=== PATIENT | male | born 1965 | race Caucasian/White ===

== ENCOUNTER 2016-07-21 10:31 | Emergency (ER) | payer OTHER ==
[2016-07-21 10:37] VITALS: BP 165/92
== END 2016-07-21 13:27 | disposition left against medical advice (07) ==
LOC: ED 10:31
DX: R78.9 Finding of unspecified substance, not normally found in blood (principal)

== ENCOUNTER 2016-07-27 09:29 | Emergency (ER) | payer OTHER ==
[2016-07-27] MEDS ORDERED: Ondansetron INJ* 2 MG/ML VIAL IV ONE (09:48)
[2016-07-27] MEDS ORDERED: NS 0.9% 1000 ML* 1,000 ML IV ONE (09:49)
[2016-07-27 10:27] LABS: Hematocrit 38 % (42-52); Hemoglobin 12.7 g/dl (14.0-18.0); Mean Corpuscular HGB Conc 34 g/dl (31-36); Mean Corpuscular Hemoglobin 29 pg (27-31); Mean Corpuscular Volume 85 fL (80-94); Mean Platelet Volume 7 um3 (7.4-10.4); Red Cell Distribution Width 14 % (10.5-15); White Blood Count 9.2 10^3/ul (3.5-10.8)
[2016-07-27 10:32] LABS: Urine Bacteria Absent (Absent); Urine Bilirubin Negative (Negative); Urine Glucose Negative (Negative); Urine Nitrite Negative (Negative); Urine Sperm Present (Absent)
[2016-07-27 10:49] LABS: Albumin 4.8 g/dL (3.2-5.2); BUN/Creatinine Ratio 14.2 (8-20); Calcium 10.3 mg/dL (8.6-10.3); EGFR African American 21.1 (>60); EGFR Non-African American 16.4 (>60); Globulin 4.1 g/dL (2-4); Magnesium 1.9 mg/dL (1.9-2.7); Potassium 3.4 mmol/L (3.5-5.0); Total Bilirubin 0.4 mg/dL (0.2-1.0); Total Protein 8.9 g/dL (6.4-8.9)
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
[2016-07-27 12:04] LABS: Venous Bicarbonate HCO3 29.9 mmol/L (24-28)
[2016-07-27 14:17] VITALS: BP 144/90
--- NOTE | 2016-07-30 20:32 | PN ---
Progress Note - Progress Note Note: patient had been transferred to [facility] prior to results. Urology at [facility] was called. Patient placed on doxycycline and vancomycin for other symptoms related to bone. Psudeomonas [place] susceptible to doxy. nothing further
== END 2016-07-27 14:52 | disposition short-term general hospital (02) ==
LOC: ED 09:29
DX: N17.9 Acute kidney failure, unspecified (principal); I10 Essential (primary) hypertension; Z87.891 Personal history of nicotine dependence
CPT/HCPCS: 36415; 80053; 81003; 81015; 82010; 82803; 83605; 83735; 85025; 87077; 87086; 87186; 93005; 96360; 96365; 96374; 99285; J2405

== ENCOUNTER 2017-01-16 11:07 | Emergency (ER) | payer OTHER ==
--- NOTE | 2017-01-16 13:00 | UC ---
Shoulder Pain HPI - HPI Summary HPI Summary: 2 days ago slipped in wet grass injuring his right shoulder---has taken additional oxycodone---and has continued pain when this has happened in the past he has gotten relief with vicoden-- - History of Current Complaint Chief Complaint: UCUpperExtremity Stated Complaint: SHOULDER INJURY Time Seen by Provider: 01/16/17 12:55 Hx Obtained From: Patient Onset/Duration: Sudden Onset, Lasting Days - 2 Timing: Constant Severity Initially: Moderate Severity Currently: Moderate Location Of Pain: Is Discrete @ - right shoulder Character: Aching, Throbbing, Stiffness Aggravating Factor(s): Movement Alleviating Factor(s): Nothing Associated Signs And Symptoms: Positive: Negative Related History: Dominant Hand Right - Allergies/Home Medications Allergies/Adverse Reactions: Allergies Allergy/AdvReac Type Severity Reaction Status Date / Time No Known Allergies Allergy Verified 01/16/17 09:18 PMH/Surg Hx/FS Hx/Imm Hx Previously Healthy: No - chronic pain Cardiovascular History: Hypertension - Surgical History Surgical History: Yes Surgery Procedure, Year, and Place: REPAIRED PELVIS/RIGHT HIP REPLACEMENT 5 SURGERIES BETWEEN - Family History Known Family History: Positive: None - Social History Occupation: Disabled Lives: With Family Alcohol Use: None Substance Use Type: Marijuana Substance Use Comment - Amount & Last Used: once and a while Smoking Status (MU): Former Smoker Review of Systems Constitutional: Negative Skin: Negative Eyes: Negative ENT: Negative Respiratory: Negative Cardiovascular: Negative Gastrointestinal: Negative Genitourinary: Negative Motor: Negative Neurovascular: Negative Musculoskeletal: Arthralgia - right shoulder Neurological: Negative Psychological: Negative All Other Systems Reviewed And Are Negative: Yes Physical Exam Triage Information Reviewed: Yes Appearance: Well-Appearing, No Pain Distress, Well-Nourished Vital Signs: Initial Vital Signs Temp 98.7 F 01/16/17 11:15 Pulse 87 01/16/17 11:15 Resp 18 01/16/17 11:15 BP 132/80 01/16/17 11:15 Pulse Ox 100 01/16/17 11:15 Vital Signs Reviewed: Yes Eye Exam: Normal Eyes: Positive: Conjunctiva Clear ENT Exam: Normal ENT: Positive: Normal ENT inspection, Hearing grossly normal. Negative: Nasal congestion, Nasal drainage, Trismus, Muffled/hoarse voice Dental Exam: Normal Neck exam: Normal Neck: Positive: Supple, Nontender, No Lymphadenopathy Respiratory Exam: Normal Respiratory: Positive: Chest non-tender, Lungs clear, Normal breath sounds, No respiratory distress, No accessory muscle use Cardiovascular Exam: Normal Cardiovascular: Positive: RRR, No Murmur, Pulses Normal, Brisk Capillary Refill Abdominal Exam: Normal Abdomen Description: Positive: Nontender, No Organomegaly, Soft Bowel Sounds: Positive: Present Musculoskeletal Exam: Normal Musculoskeletal: Positive: Strength Intact, ROM Intact, No Edema Neurological Exam: Normal Neurological: Positive: Alert, Muscle Tone Normal Psychological Exam: Normal Skin Exam: Normal Diagnostics - Radiology No standard instances Xray Interpretation: No Acute Changes Radiology Interpretation Completed By: Radiologist Shoulder Course/Dx - Course Assessment/Plan: hydrocodone, mobic, ice packes follow with pcp - Differential Dx/Diagnosis Differential Diagnosis/HQI/PQRI: Contusion, Fracture (Closed), Sprain, Strain Provider Diagnoses: Right shoulder contusion Discharge - Discharge Plan Condition: Stable Disposition: HOME Prescriptions: Hydrocodone-Acetaminophen [Hydrocodone/Acetaminophen 5-325 mg] 1 tab PO Q6H #12 tab MDD 4 Meloxicam(NF) [Mobic(NF)] 7.5 mg PO BID #30 tab Patient Education Materials: Shoulder Pain (ED) Referrals: Rani Briceno NP [Primary Care Provider] - 1 Week
--- NOTE | 2017-01-16 13:28 | RAD ---
HISTORY: Pain after fall, right shoulder COMPARISONS: April 01, 2004 VIEWS: 4, Frontal internal rotation, external rotation, outlet, and axillary views of the right shoulder FINDINGS: BONE DENSITY: Normal. BONES: There is a well-corticated bone fragment off the lateral clavicle. JOINTS: There is no arthropathy. There is mild diastasis of the AC joint ALIGNMENT: There is no dislocation. SOFT TISSUES: Unremarkable. OTHER FINDINGS: None. IMPRESSION: FINDINGS SUGGESTIVE OF REMOTE A.C. INJURY. NO ACUTE OSSEOUS INJURY. IF SYMPTOMS PERSIST, RECOMMEND REPEAT IMAGING
[2017-01-16 14:07] VITALS: BP 127/97
== END 2017-01-16 13:50 | disposition home or self-care (01) ==
LOC: UCEAST 11:07
DX: S49.90XA Unspecified injury of shoulder and upper arm, unspecified arm, initial encounter (principal); X08.8XXA Exposure to other specified smoke, fire and flames, initial encounter; Y92.9 Unspecified place or not applicable; Z87.891 Personal history of nicotine dependence
CPT/HCPCS: 99211; G0463

== ENCOUNTER 2017-03-24 11:41 | Emergency (ER) | payer OTHER ==
[2017-03-24 12:06] VITALS: BP 131/82
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
== END 2017-03-24 13:59 | disposition left against medical advice (07) ==
LOC: UCEAST 11:41
DX: M25.551 Pain in right hip (principal); I10 Essential (primary) hypertension; Z79.891 Long term (current) use of opiate analgesic
CPT/HCPCS: 99212; G0463

== ENCOUNTER 2017-10-26 10:56 | Emergency (ER) | payer OTHER ==
[2017-10-26 11:15] VITALS: BP 160/108
[2017-10-26] MEDS ORDERED: Ketorolac INJ* 60 MG/2 ML VIAL IM ONE (11:32)
--- NOTE | 2017-10-26 13:30 | UC ---
Shoulder Pain HPI - HPI Summary HPI Summary: Patient is a 52-year-old male with a history of right shoulder pain after a shoulder separation in 1995. He has been having pain since that time, but has recently reinjured the shoulder after throwing trash several days ago. He has been on chronic opioids since his most recent surgery 6 months ago. His PCP has since stopped giving him opioids and he is now followed by the orthopedic surgeon who has been giving him opioids. They're currently discussing surgery. He is also awaiting to get into see the pain clinic to get long-standing opioids. He states he has not tried anything at home because he cannot afford it. He is currently on disability. Has an appointment with Dr. Oneill, his orthopedic surgeon on Monday and would like opioids to get him through until that time. He denies any other concerns at this time. He appears well on arrival and in no acute distress. - History of Current Complaint Chief Complaint: UCUpperExtremity Stated Complaint: SHOULDER INJURY Time Seen by Provider: 10/26/17 11:04 Hx Obtained From: Patient Onset/Duration: Sudden Onset Timing: Constant Severity Initially: Mild Severity Currently: Mild Location Of Pain: Is Discrete @ - R ankle Pain Intensity: 7 Pain Scale Used: 0-10 Numeric Character: Aching Aggravating Factor(s): Movement Alleviating Factor(s): Rest, Ice, Compression Associated Signs And Symptoms: Positive: Negative Related History: Dominant Hand Right - Risk Factors Non-Orthopedic Risk Factor: Negative DVT Risk Factors: Negative Septic Arthritis Risk Factor: Negative - Allergies/Home Medications Allergies/Adverse Reactions: Allergies Allergy/AdvReac Type Severity Reaction Status Date / Time vancomycin Allergy See Comment Verified 10/26/17 11:06 Home Medications: Home Medications Cefadroxil CAP* [Duricef CAP*] 1 grams PO BID 10/26/17 [History Confirmed ] DOXYcycline CAP(*) [DOXYcycline 100MG CAP(*)] 100 mg PO BID 10/26/17 [History Confirmed 10/26/17] rifAMPin [Rifampin] 300 mg PO DAILY 10/26/17 [History Confirmed 10/26/17] PMH/Surg Hx/FS Hx/Imm Hx Previously Healthy: Yes - Surgical History Surgical History: Yes Surgery Procedure, Year, and Place: REPAIRED PELVIS/RIGHT HIP REPLACEMENT 5 SURGERIES BETWEEN . Hardware removal from R hip 2017 - Family History Known Family History: Positive: None, Hypertension - Social History Occupation: Unemployed Lives: Alone Alcohol Use: None Substance Use Type: Marijuana Substance Use Comment - Amount & Last Used: 2 x week Smoking Status (MU): Former Smoker Review of Systems Constitutional: Negative ENT: Negative Respiratory: Negative Cardiovascular: Negative Motor: Negative Neurovascular: Negative Musculoskeletal: Arthralgia Psychological: Negative Is Patient Immunocompromised?: No All Other Systems Reviewed And Are Negative: Yes Physical Exam Triage Information Reviewed: Yes Appearance: Well-Appearing, Well-Nourished Vital Signs: Initial Vital Signs Temp 98.6 F 10/26/17 11:08 Pulse 112 10/26/17 11:08 Resp 18 10/26/17 11:08 BP 160/108 10/26/17 11:08 Pulse Ox 98 10/26/17 11:08 Vital Signs Reviewed: Yes Eye Exam: Normal Eyes: Positive: Conjunctiva Clear - He is wheelchair Neck exam: Normal Neck: Positive: Supple, No Lymphadenopathy Respiratory Exam: Normal Respiratory: Positive: Chest non-tender, Lungs clear Cardiovascular Exam: Normal Cardiovascular: Positive: RRR Musculoskeletal: Positive: Strength Limited @ - R shoulder/limited ROM/no edema Neurological Exam: Normal Neurological: Positive: Alert Psychological: Positive: Normal Response To Family Skin Exam: Normal Shoulder Course/Dx - Course Course Of Treatment: Discussed with the patient treatment options. As he has a follow-up with Dr. Oneill, I will defer to him to further continue his treatment as they see fit. I discussed with the patient that we are able to Toradol for relief as this has anti-inflammatory properties as well as pain control. He appears to be upset about this, but is agreeable to the Toradol loading dose 60 mg IM and a 4 day oral supply. He is encouraged to continue to follow up with Dr. Oneill for more pain management. - Differential Dx/Diagnosis Provider Diagnoses: Chronic Shoulder Pain Discharge - Sign-Out/Discharge Documenting (check all that apply): Discharge - Discharge Plan Condition: Stable Disposition: HOME Prescriptions: Acetaminophen TAB* [Tylenol TAB*] 650 mg PO Q6H PRN #30 tab PRN Reason: Pain Ketorolac TAB * [Toradol TAB *] 10 mg PO Q6H #16 tab Patient Education Materials: Musculoskeletal Pain (ED) Referrals: No Primary Care Phys,NOPCP [Primary Care Provider] - Additional Instructions: Take the toradol four times daily On opposite schedule, take the tylenol four times daily You should be taking a medication every 3-4 hours for pain control Moist heat to the area Keep your appt with your doctor on Monday - Billing Disposition and Condition Condition: STABLE Disposition: HOME
== END 2017-10-26 11:45 | disposition home or self-care (01) ==
LOC: UCEAST 10:56
DX: M25.511 Pain in right shoulder (principal); Z88.1 Allergy status to other antibiotic agents; Z87.891 Personal history of nicotine dependence
CPT/HCPCS: 96372; 99212; G0463; J1885

== ENCOUNTER 2017-11-15 06:26 | Emergency (ER) | payer OTHER ==
[2017-11-15] MEDS ORDERED: Ketorolac INJ* 30 MG/ML 1 ML VIAL IV ONE (07:28)
[2017-11-15] MEDS ORDERED: NS 0.9% 1000 ML* 1,000 ML IV ONE (07:28)
[2017-11-15] MEDS ORDERED: Metoclopramide IV* 5 MG/ML 2 ML VIAL IV ONE (07:28)
[2017-11-15] MEDS ORDERED: Albuterol/Ipratropium NEB.SOL* Albuterol 2.5 MG/Ipratropium 0.5 MG 3 ML INH ONE ×2 (07:33→07:36)
[2017-11-15] MEDS ORDERED: Dexamethasone IV* 4 MG/ML 1 ML (4 MG) IV SLOW PU ONE (07:34)
[2017-11-15] MEDS ORDERED: Clindamycin 900 MG IVPREMIX(* 900 MG/50 ML SDV IV ONE (07:35)
[2017-11-15 08:10] LABS: ABS Basophils 0.1 10^3/ul (0-0.2); ABS Eosinophils 0.1 10^3/ul (0-0.6); ABS Monocytes 0.5 10^3/ul (0-0.8); ABS Neutrophils 4.3 10^3/ul (1.5-7.7); ABS Nucleated RBC 0 10^3/ul; Eosinophil % 2.4 % (0-6); Hematocrit 35 % (42-52); Hemoglobin 11.6 g/dl (14.0-18.0); Lymphocyte % 16.8 % (25-47); Mean Corpuscular HGB Conc 33 g/dl (31-36); Mean Corpuscular Hemoglobin 27 pg (27-31); Mean Corpuscular Volume 82 fL (80-94); Mean Platelet Volume 6.2 um3 (7.4-10.4); Nucleated Red Blood Cells % 0; Platelet Count 518 10^3/ul (150-450); Red Blood Count 4.24 10^6/ul (4.0-5.4); Red Cell Distribution Width 16 % (10.5-15)
[2017-11-15 08:19] LABS: INR 0.89 (0.77-1.02)
[2017-11-15 08:24] LABS: EGFR Non-African American 123.6 (>60)
--- NOTE | 2017-11-15 08:40 | RAD ---
INDICATION: Wheezing. COMPARISON: Comparison is made with a prior chest x-ray study from May 23, 2016. TECHNIQUE: Dual-energy PA and lateral views of the chest were obtained. FINDINGS: The heart is within normal limits in size. Mediastinal and hilar contours appear within normal limits. The lungs are hyperinflated and clear. No pleural effusion is seen. IMPRESSION: NO EVIDENCE FOR ACTIVE CARDIOPULMONARY DISEASE.
[2017-11-15] MEDS ORDERED: Iohexol 300* (CONTRAST) 10 ML SDV IV ONE (09:06)
[2017-11-15 09:21] LABS: Urine Appearance Cloudy; Urine Blood 2+ (Negative); Urine Color Yellow; Urine Ketones 1+ (Negative); Urine Protein 2+(100 mg/dL) (Negative); Urine Specific Gravity 1.023 (1.010-1.030); Urine Urobilinogen Negative (Negative)
[2017-11-15] MEDS ORDERED: Morphine VIAL* 4 MG/ML VIAL (1 ml vial) IV ONE (09:31)
--- NOTE | 2017-11-15 09:48 | RAD ---
INDICATION: History of right hip arthroplasty with sepsis. Evaluate right flank COMPARISON: Right hip March 23, 2017; CT pelvis February 17, 2016 TECHNIQUE: Axial source images were obtained from the hemidiaphragms to the symphysis pubis following administration of oral and intravenous contrast. 93 mL Omnipaque 300 was utilized. Coronal and sagittal reconstructed images were acquired. Lung bases: The lung bases are clear. Liver: The liver is normal in size. There are no masses. There is no ductal dilatation. Gallbladder: There are several tiny gallstones. Spleen: The spleen is normal in size. There are no masses. Pancreas: There is no focal pancreatic mass or ductal dilatation. Adrenal glands: There is no evidence of adrenal mass. Kidneys: The kidneys are normal in size and position. There are prompt nephrograms and there is prompt excretion bilaterally. There are no renal parenchymal masses. There is no evidence of nephrolithiasis. Adenopathy: There is adenopathy in the right inguinal region which is presumably reactive. This is similar to the prior study.. Fluid collections: No discrete localized fluid collections to suggest abscess. Vessels:There are no significant atherosclerotic changes involving the aorta. There is no focal aneurysm. The iliac vessels are normal in caliber. The IVC appears normal. GI tract: There are no acute CT bowel findings. There is no obstruction. The stomach and small bowel appear normal. The lower GI tract is normal. The cecum, ileocecal valve, and terminal ileum appear normal. The appendix is visualized and appear normal. Pelvic organs: Not well evaluated due to beam hardening artifact from right hip breath plasty Bladder: Not well evaluated due to beam hardening artifact from right hip arthroplasty. Abdominal and pelvic soft tissues: There are is edematous change in the superficial soft tissues of the right flank and there is skin induration. Many of these findings were present previously. There is edematous change in the flank musculature extending to the gluteal region and into the iliac fossa where the iliacus muscle shows decreased density and there may be an elliptical fluid collection in the iliac fossa. This was not present previously but in the interim there has been post operative change with removal of metallic hardware involving the right iliac bone. This fluid may or may not be infected. Osseous structures: Extensive postsurgical changes right and in the pelvis with right hip arthroplasty. No acute osseous findings. There is extensive sclerotic change with periosteal elevation suggestive of chronic osteomyelitis. There are Other: None IMPRESSION: NO DISCRETE SUPERFICIAL FLUID COLLECTION TO SUGGEST FLANK ABSCESS ALTHOUGH THERE IS EDEMATOUS CHANGE WITH SKIN INDURATION WHICH MAY REFLECT CELLULITIS. THERE IS INTERVAL RIGHT PELVIC SURGERY AND THERE IS NOW LOW DENSITY IN THE RIGHT ILIAC FOSSA WHICH MAY REPRESENT EDEMA WITHIN THE ILIACUS MUSCLE ALTHOUGH THE MAY ALSO BE A SMALL FLUID COLLECTION. THERE ARE FINDINGS OF CHRONIC OSTEOMYELITIS. THERE IS LYMPHADENOPATHY IN THE RIGHT INGUINAL REGION, UNCHANGED AND LIKELY REFLECTING REACTIVE LYMPHADENOPATHY.
[2017-11-15 11:06] VITALS: BP 140/84
[2017-11-15] MEDS ORDERED: Ciprofloxacin 400MG IVPREMIX(* 400 MG/200 ML BAG IVPB ONE (11:42)
--- NOTE | 2017-11-15 16:59 | ED ---
Gi Ozuna Julia, scribed for Savanah Berry MD on 11/15/17 at 0725 . Skin Complaint - HPI Summary HPI Summary: This patient is a 52 year old M presenting to [facility] with a chief complaint of a painful erythematous rash over the RLQ and right lateral abdomen for the past couple days. The patient rates the pain 9/10 in severity. Patient denies fever, nausea, and vomiting. 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 Infection occurred after a R hip replacement. Patient is being treated by infectious disease at [facility]. Pt additionally reports wheezing and SOB. Previous similar symptoms relieved by nebulizer tx at PCPs office. - History of Current Complaint Chief Complaint: EDRashSkinAbscess Time Seen by Provider: 11/15/17 07:12 Stated Complaint: POSSIBLE INFECTION ON ABD/RIGHT SIDE Hx Obtained From: Patient Onset/Duration: Worse Since - past couple days Skin Exposure Onset/Duration: Days Ago Timing: Constant Pain Intensity: 9 Pain Scale Used: 0-10 Numeric Skin Location: Abdomen - RLQ, right lateral Character: Pain, Redness Alleviating Symptom(s): Other: Associated Signs & Symptoms: Wheezing - and SOB - Allergy/Home Medications Allergies/Adverse Reactions: Allergies Allergy/AdvReac Type Severity Reaction Status Date / Time vancomycin Allergy See Comment Verified 11/15/17 06:33 Home Medications: Home Medications RiFAMPin CAP* 300 mg PO BID 11/15/17 [History Confirmed 11/15/17] PMH/Surg Hx/FS Hx/Imm Hx Endocrine/Hematology History: Denies: Hx Diabetes, Hx Thyroid Disease Cardiovascular History: Reports: Hx Hypertension - on medication Denies: Hx Pacemaker/ICD Respiratory History: Denies: Hx Asthma, Hx Chronic Obstructive Pulmonary Disease (COPD) GI History: Denies: Hx Ulcer History: Denies: Hx Renal Disease Musculoskeletal History: Reports: Hx Arthritis, Hx Orthopedic Injury - fractured right hip and pelvis, Other Musculoskeletal History Sensory History: Denies: Hx Hearing Aid Psychiatric History: Reports: Hx Depression Denies: Hx Panic Disorder - Surgical History Surgery Procedure, Year, and Place: REPAIRED PELVIS/RIGHT HIP REPLACEMENT 5 SURGERIES BETWEEN . Hardware removal from R hip 2017 Infectious Disease History: Yes Infectious Disease History: Reports: Hx of Known/Suspected MRSA Denies: Hx Clostridium Difficile, Hx Hepatitis, Hx Human Immunodeficiency Virus (HIV), Hx Shingles, Hx Tuberculosis, Hx Known/Suspected VRE, Hx Known/ Suspected VRSA, History Other Infectious Disease, Traveled Outside the [place] in Last 30 Days - Family History Known Family History: Positive: Hypertension - Social History Alcohol Use: None Substance Use Type: Reports: Marijuana Substance Use Comment - Amount & Last Used: 2 x week Hx Tobacco Use: No Smoking Status (MU): Former Smoker Review of Systems Negative: Fever Positive: Shortness Of Breath, Cough Negative: Vomiting, Nausea Positive: Rash All Other Systems Reviewed And Are Negative: Yes Physical Exam - Summary Physical Exam Summary: Appearance: Well-appearing, Well-nourished Skin: Warm, erythema in RLQ area extending laterally with induration, no fluctuant appreciated Eyes: Normal, PERRL, EOMI, sclera anicteric ENT: Normal Neck: Supple, nontender Respiratory: Wheezing throughout Cardiovascular: S1, S2, no murmur, no rub, no gallop Abdomen: Soft, nontender, no organomegaly Bowel sounds: Present Musculoskeletal: Normal, Strength/ROM Intact, no edema, pulses symmetrical Neurological: Normal, A&Ox3, cranial nerves II-XII WNL, follows commands, gait not tested, sensation intact to pin and light touch Psychiatric: affect normal, behavior appropriate, dressed appropriately, judgment intact Triage Information Reviewed: Yes Vital Signs On Initial Exam: Initial Vitals Temp Pulse Resp BP Pulse Ox 97.5 F 100 18 144/92 94 11/15/17 06:28 11/15/17 06:28 11/15/17 06:28 11/15/17 06:28 11/15/17 06:28 Vital Signs Reviewed: Yes Diagnostics - Vital Signs Vital Signs Temp Pulse Resp BP Pulse Ox 11/15/17 06:54 95 131/94 94 11/15/17 06:53 93 94 11/15/17 06:28 97.5 F 100 18 144/92 94 - Laboratory Lab Results: Lab Results 11/15/17 11/15/17 11/15/17 Range/Units 07:49 07:49 07:49 WBC 6.0 (3.5-10.8) 10^3/ul RBC 4.24 (4.0-5.4) 10^6/ul Hgb 11.6 L (14.0-18.0) g/dl Hct 35 L (42-52) % MCV 82 (80-94) fL MCH 27 (27-31) pg MCHC 33 (31-36) g/dl RDW 16 H (10.5-15) % Plt Count 518 H (150-450) 10^3/ul MPV 6.2 L (7.4-10.4) um3 Neut % (Auto) 71.7 (38-83) % Lymph % (Auto) 16.8 L (25-47) % [place] % (Auto) 8.1 H (0-7) % Eos % (Auto) 2.4 (0-6) % Baso % (Auto) 1.0 (0-2) % Absolute Neuts (auto) 4.3 (1.5-7.7) 10^3/ul Absolute Lymphs (auto) 1.0 (1.0-4.8) 10^3/ul Absolute Monos (auto) 0.5 (0-0.8) 10^3/ul Absolute Eos (auto) 0.1 (0-0.6) 10^3/ul Absolute Basos (auto) 0.1 (0-0.2) 10^3/ul Absolute Nucleated RBC 0 10^3/ul Nucleated RBC % 0 INR (Anticoag Therapy) (0.77-1.02) APTT (26.0-36.3) seconds Sodium 136 L (139-145) mmol/L Potassium 4.3 (3.5-5.0) mmol/L Chloride 99 L (101-111) mmol/L Carbon Dioxide 28 (22-32) mmol/L Anion Gap 9 (2-11) mmol/L BUN 20 (6-24) mg/dL Creatinine 0.67 (0.67-1.17) mg/dL Est GFR ( Amer) 159.0 (>60) Est GFR (Non-Af Amer) 123.6 (>60) BUN/Creatinine Ratio 29.9 H (8-20) Glucose 114 H (70-100) mg/dL Lactic Acid 0.9 (0.5-2.0) mmol/L Calcium 9.3 (8.6-10.3) mg/dL Total Bilirubin 0.30 (0.2-1.0) mg/dL AST 19 (13-39) U/L ALT 24 (7-52) U/L Alkaline Phosphatase 91 (34-104) U/L C-Reactive Protein 128.47 H (< 5.00) mg/L Total Protein 7.4 (6.4-8.9) g/dL Albumin 3.8 (3.2-5.2) g/dL Globulin 3.6 (2-4) g/dL Albumin/Globulin Ratio 1.1 (1-3) Lipase 36 (11.0-82.0) U/L Urine Color Urine Appearance Urine pH (5-9) Ur Specific [place] (1.010-1.030) Urine Protein (Negative) Urine Ketones (Negative) Urine Blood (Negative) Urine Nitrate (Negative) Urine Bilirubin (Negative) Urine Urobilinogen (Negative) Ur Leukocyte Esterase (Negative) Urine WBC (Auto) (Absent) Urine RBC (Auto) (Absent) Urine Bacteria (Absent) Urine Glucose (Negative) 11/15/17 11/15/17 Range/Units 07:49 09:01 WBC (3.5-10.8) 10^3/ul RBC (4.0-5.4) 10^6/ul Hgb (14.0-18.0) g/dl Hct (42-52) % MCV (80-94) fL MCH (27-31) pg MCHC (31-36) g/dl RDW (10.5-15) % Plt Count (150-450) 10^3/ul MPV (7.4-10.4) um3 Neut % (Auto) (38-83) % Lymph % (Auto) (25-47) % [place] % (Auto) (0-7) % Eos % (Auto) (0-6) % Baso % (Auto) (0-2) % Absolute Neuts (auto) (1.5-7.7) 10^3/ul Absolute Lymphs (auto) (1.0-4.8) 10^3/ul Absolute Monos (auto) (0-0.8) 10^3/ul Absolute Eos (auto) (0-0.6) 10^3/ul Absolute Basos (auto) (0-0.2) 10^3/ul Absolute Nucleated RBC 10^3/ul Nucleated RBC % INR (Anticoag Therapy) 0.89 (0.77-1.02) APTT 28.6 (26.0-36.3) seconds Sodium (139-145) mmol/L Potassium (3.5-5.0) mmol/L Chloride (101-111) mmol/L Carbon Dioxide (22-32) mmol/L Anion Gap (2-11) mmol/L BUN (6-24) mg/dL Creatinine (0.67-1.17) mg/dL Est GFR ( Amer) (>60) Est GFR (Non-Af Amer) (>60) BUN/Creatinine Ratio (8-20) Glucose (70-100) mg/dL Lactic Acid (0.5-2.0) mmol/L Calcium (8.6-10.3) mg/dL Total Bilirubin (0.2-1.0) mg/dL AST (13-39) U/L ALT (7-52) U/L Alkaline Phosphatase (34-104) U/L C-Reactive Protein (< 5.00) mg/L Total Protein (6.4-8.9) g/dL Albumin (3.2-5.2) g/dL Globulin (2-4) g/dL Albumin/Globulin Ratio (1-3) Lipase (11.0-82.0) U/L Urine Color Yellow Urine Appearance Cloudy Urine pH 6.0 (5-9) Ur Specific [place] 1.023 (1.010-1.030) Urine Protein 2+(100 mg/dl) A (Negative) Urine Ketones 1+ A (Negative) Urine Blood 2+ A (Negative) Urine Nitrate Negative (Negative) Urine Bilirubin Negative (Negative) Urine Urobilinogen Negative (Negative) Ur Leukocyte Esterase 3+ A (Negative) Urine WBC (Auto) 3+(>20/hpf) A (Absent) Urine RBC (Auto) 3+(>10/hpf) A (Absent) Urine Bacteria Absent (Absent) Urine Glucose Negative (Negative) Result Diagrams: 11/15/17 07:49 11/15/17 07:49 Lab Statement: Any lab studies that have been ordered have been reviewed, and results considered in the medical decision making process. - Radiology CXR Radiology Interpretation Completed By: Radiologist - NO EVIDENCE FOR ACTIVE CARDIOPULMONARY DISEASE. Dr. Berry has reviewed this report. - CT A/P CT Interpretation Completed By: Radiologist - NO DISCRETE SUPERFICIAL FLUID COLLECTION TO SUGGEST FLANK ABSCESS ALTHOUGH THERE IS EDEMATOUS CHANGE WITH SKIN INDURATION WHICH MAY REFLECT CELLULITIS. THERE IS INTERVAL RIGHT PELVIC SURGERY AND THERE IS NOW LOW DENSITY IN THE RIGHT ILIAC FOSSA WHICH MAY REPRESENT EDEMA WITHIN THE ILIACUS MUSCLE ALTHOUGH THE MAY ALSO BE A SMALL FLUID COLLECTION. THERE ARE FINDINGS OF CHRONIC OSTEOMYELITIS. THERE IS LYMPHADENOPATHY IN THE RIGHT INGUINAL REGION, UNCHANGED AND LIKELY REFLECTING REACTIVE LYMPHADENOPATHY. Dr. Berry has reviewed this report. Re-Evaluation - Re-Evaluation 1 Re-Evaluation Time: 11:16 Comment: Discussed plan of care with patient. Course/Dx - Course Assessment/Plan: 52 y/o M presents to the ED c/o cellulitis to his R lateral abdomen. Pt reports multiple surgeries to the R hip with hardware placement and subsequent infection. UA is indicative for UTI. At 11:[address] Beasley , infection disease conrol at [facility]. HE recommends transfer to [facility] and need for IV antibioticss. Discussed recommendations for transfer to [facility] with patient, he refuses. Patient signs out AMA. Patient said that he will follow up with them on his own time. Patient is awake, alert and oriented and seems capable of making informed decisions and so he was allowed to sign out against advice. - Diagnoses Provider Diagnoses: Post-operative infection, UTI (urinary tract infection) Discharge - Sign-Out/Discharge Documenting (check all that apply): Discharge/Admit/Transfer - AMA - Discharge Plan Condition: Stable Disposition: AGAINST MEDICAL ADVICE Referrals: No Primary Care Phys,NOPCP [Primary Care Provider] - - Billing Disposition and Condition Condition: STABLE Disposition: AMA The documentation as recorded by the Gi rachel Julia accurately reflects the service I personally performed and the decisions made by me, Savanah Berry MD.
== END 2017-11-15 11:55 | disposition left against medical advice (07) ==
LOC: ED 06:26
DX: Z88.3 Allergy status to other anti-infective agents (principal); Z87.891 Personal history of nicotine dependence; T81.4XXA Infection following a procedure, initial encounter; N39.0 Urinary tract infection, site not specified
CPT/HCPCS: 36415; 71046; 74177; 80053; 81003; 81015; 83605; 83690; 85025; 85610; 85730; 86140; 87040; 87086; 96361; 96374; 96375; 99283; A9270-GY; J1100; J1885; J2270; J2765; Q9967

== ENCOUNTER 2017-11-17 07:33 | Emergency (ER) | payer OTHER ==
[2017-11-17] MEDS ORDERED: Morphine VIAL* 4 MG/ML VIAL (1 ml vial) IV ONE (08:05)
[2017-11-17] MEDS ORDERED: NS 0.9% 1000 ML* 1,000 ML IV ONE (08:05)
[2017-11-17 08:43] LABS: ABS Basophils 0.1 10^3/ul (0-0.2); ABS Eosinophils 0.1 10^3/ul (0-0.6); ABS Lymphocytes 0.9 10^3/ul (1.0-4.8); ABS Monocytes 0.3 10^3/ul (0-0.8); ABS Neutrophils 3.8 10^3/ul (1.5-7.7); ABS Nucleated RBC 0 10^3/ul; Eosinophil % 2.1 % (0-6); Hematocrit 34 % (42-52); Hemoglobin 11.1 g/dl (14.0-18.0); Lymphocyte % 18.2 % (25-47); Mean Corpuscular HGB Conc 33 g/dl (31-36); Mean Corpuscular Hemoglobin 27 pg (27-31); Mean Corpuscular Volume 82 fL (80-94); Nucleated Red Blood Cells % 0; Platelet Count 513 10^3/ul (150-450); Red Blood Count 4.07 10^6/ul (4.0-5.4); Red Cell Distribution Width 17 % (10.5-15); White Blood Count 5.2 10^3/ul (3.5-10.8)
[2017-11-17] MEDS ORDERED: Piperacillin/Tazobac ADVAN(*) 3.375 GM in NS 0.9% 100 ML* 100 ML IVPB ONE (09:38)
--- NOTE | 2017-11-17 10:21 | ED ---
Complex/Multi-Sys Presentation - HPI Summary HPI Summary: Patient is a 52-year-old male who presents emergency department for reevaluation. 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 He currently follows with infectious disease [facility]. His orthopedic surgeon is also an [facility] as well. Patient states in July he was hospitalized for one month for IV antibiotics secondary to infected right hip prosthesis. Patient states this past week he developed redness, pain and swelling to the right side of his abdomen/flank. He presented to the ER 2 days ago and had blood work and CAT scan done. CAT scan showing cellulitis with questionable fluid pocket. Blood work was unremarkable other than elevated CRP of 125. At that time ER doctor spoke with Dr. Beasley, infectious disease, at [facility] who recommended transfer for continuation of IV antibiotics. At that time patient refused transfer and was signed out AMA. Pt. presents to the today because his pain has increased. He is currently on keflex, doxy, and rifampin. He otherwise denies fever, chills, N/V, CP, SOB. Symptoms are moderate in severity. Walking and touching affected area makes symptoms worse. Nothing makes symptoms better. - History Of Current Complaint Chief Complaint: EDFlankPain Time Seen by Provider: 11/17/17 07:42 Hx Obtained From: Patient - Allergies/Home Medications Allergies/Adverse Reactions: Allergies Allergy/AdvReac Type Severity Reaction Status Date / Time vancomycin Allergy See Comment Verified 11/15/17 06:33 PMH/Surg Hx/FS Hx/Imm Hx Previously Healthy: Yes Endocrine/Hematology History: Denies: Hx Diabetes, Hx Thyroid Disease Cardiovascular History: Reports: Hx Hypertension - on medication Denies: Hx Pacemaker/ICD Respiratory History: Denies: Hx Asthma, Hx Chronic Obstructive Pulmonary Disease (COPD) GI History: Denies: Hx Ulcer History: Denies: Hx Renal Disease Musculoskeletal History: Reports: Hx Arthritis, Hx Orthopedic Injury - fractured right hip and pelvis, Other Musculoskeletal History Sensory History: Denies: Hx Hearing Aid Psychiatric History: Reports: Hx Depression Denies: Hx Panic Disorder - Surgical History Surgery Procedure, Year, and Place: REPAIRED PELVIS/RIGHT HIP REPLACEMENT 5 SURGERIES BETWEEN . Hardware removal from R hip 2017 Infectious Disease History: No Infectious Disease History: Reports: Hx of Known/Suspected MRSA Denies: Hx Clostridium Difficile, Hx Hepatitis, Hx Human Immunodeficiency Virus (HIV), Hx Shingles, Hx Tuberculosis, Hx Known/Suspected VRE, Hx Known/ Suspected VRSA, History Other Infectious Disease, Traveled Outside the [place] in Last 30 Days - Family History Known Family History: Positive: None, Hypertension - Social History Alcohol Use: None Substance Use Type: Reports: Marijuana Substance Use Comment - Amount & Last Used: 2 x week Hx Tobacco Use: No Smoking Status (MU): Former Smoker Review of Systems Constitutional: Negative Negative: Fever, Chills Eyes: Negative ENT: Negative Cardiovascular: Negative Respiratory: Negative Positive: Abdominal Pain. Negative: Vomiting, Diarrhea, Nausea Positive: Other - Right hip pain Positive: Other - Redness, swelling and pain to abd. All Other Systems Reviewed And Are Negative: Yes Physical Exam Triage Information Reviewed: Yes Vital Signs On Initial Exam: Initial Vitals Temp Pulse Resp BP Pulse Ox 97.3 F 98 15 148/106 96 11/17/17 07:35 11/17/17 07:35 11/17/17 07:35 11/17/17 07:35 11/17/17 07:35 Vital Signs Reviewed: Yes Appearance: Positive: Well-Appearing - Pt. lying in bed in NAD. Skin: Positive: Warm, Dry Head/Face: Positive: Normal Head/Face Inspection Eyes: Positive: Normal, JANAE Neck: Positive: Supple Abdomen Description: Positive: Other: - Large area of induration with mild over lying erythema noted to the right lateral abdominal/flank wall. Area is very tender to light palpation. Diffuse lower abd. pain on palpation. Musculoskeletal: Positive: Other - Pain with ROM to right hip. Leg is neurovascularly intact. Neurological: Positive: Normal, CN Intact II-III Psychiatric: Positive: Normal Diagnostics - Vital Signs Vital Signs Temp Pulse Resp BP Pulse Ox 11/17/17 08:18 20 11/17/17 07:35 97.3 F 98 15 148/106 96 - Laboratory Lab Results: Lab Results 11/17/17 11/17/17 11/17/17 Range/Units 08:27 08:27 08:27 WBC 5.2 (3.5-10.8) 10^3/ul RBC 4.07 (4.0-5.4) 10^6/ul Hgb 11.1 L (14.0-18.0) g/dl Hct 34 L (42-52) % MCV 82 (80-94) fL MCH 27 (27-31) pg MCHC 33 (31-36) g/dl RDW 17 H (10.5-15) % Plt Count 513 H (150-450) 10^3/ul MPV 6.0 L (7.4-10.4) um3 Neut % (Auto) 73.0 (38-83) % Lymph % (Auto) 18.2 L (25-47) % [place] % (Auto) 5.6 (0-7) % Eos % (Auto) 2.1 (0-6) % Baso % (Auto) 1.1 (0-2) % Absolute Neuts (auto) 3.8 (1.5-7.7) 10^3/ul Absolute Lymphs (auto) 0.9 L (1.0-4.8) 10^3/ul Absolute Monos (auto) 0.3 (0-0.8) 10^3/ul Absolute Eos (auto) 0.1 (0-0.6) 10^3/ul Absolute Basos (auto) 0.1 (0-0.2) 10^3/ul Absolute Nucleated RBC 0 10^3/ul Nucleated RBC % 0 Sodium 135 L (139-145) mmol/L Potassium 3.8 (3.5-5.0) mmol/L Chloride 101 (101-111) mmol/L Carbon Dioxide 26 (22-32) mmol/L Anion Gap 8 (2-11) mmol/L BUN 8 (6-24) mg/dL Creatinine 0.53 L (0.67-1.17) mg/dL Est GFR ( Amer) 208.4 (>60) Est GFR (Non-Af Amer) 162.0 (>60) BUN/Creatinine Ratio 15.1 (8-20) Glucose 113 H (70-100) mg/dL Lactic Acid 0.8 (0.5-2.0) mmol/L Calcium 9.0 (8.6-10.3) mg/dL Total Bilirubin 0.30 (0.2-1.0) mg/dL AST 13 (13-39) U/L ALT 17 (7-52) U/L Alkaline Phosphatase 80 (34-104) U/L Total Protein 6.8 (6.4-8.9) g/dL Albumin 3.5 (3.2-5.2) g/dL Globulin 3.3 (2-4) g/dL Albumin/Globulin Ratio 1.1 (1-3) Result Diagrams: 11/17/17 08:27 11/17/17 08:27 Lab Statement: Any lab studies that have been ordered have been reviewed, and results considered in the medical decision making process. Complex Multi-Symp Course/Dx Course Of Treatment: Pt. presenting for worsening abd. wall cellulitis with possible recurrent infection of right prosthetic hip. He is afebrile stable vital signs. Patient was started on IV fluids and low-dose IV morphine for pain. Will recheck blood work and blood cultures. Initially spoke with infectious disease [facility], Dr. Beasley, who recommends transfer for worsening infection. IV zosyn given. Pt. will be transferred stable. - Diagnoses Differential Diagnoses/HQI/PQRI: Sepsis, Other Provider Diagnoses: Abdominal wall cellulitis, Infected prosthesis of right hip - Physician Notifications Instructed by Provider To: Transfer Admit/Transition Orders Completed By ED Provider: Yes Reason For Transfer: Specialty or service not available at [facility] [place]. Discharge - Sign-Out/Discharge Documenting (check all that apply): Discharge/Admit/Transfer - Discharge Plan Condition: Stable Disposition: TRANS HIGHER LVL OF CARE FAC Referrals: Rosas Dumont MD [Primary Care Provider] - - Billing Disposition and Condition Condition: STABLE Disposition: EMTALA
[2017-11-17 10:33] VITALS: BP 145/94
== END 2017-11-17 11:15 | disposition short-term general hospital (02) ==
LOC: ED 07:33
DX: L03.311 Cellulitis of abdominal wall (principal); T84.51XD Infection and inflammatory reaction due to internal right hip prosthesis, subsequent encounter; I10 Essential (primary) hypertension; F32.9 Major depressive disorder, single episode, unspecified; Z88.1 Allergy status to other antibiotic agents; Z87.891 Personal history of nicotine dependence
CPT/HCPCS: 36415; 80053; 83605; 85025; 87040; 96365; 96375; 99283; J2270; J2543

== ENCOUNTER 2018-02-03 08:32 | Emergency (ER) | payer OTHER ==
[2018-02-03] MEDS ORDERED: NS 0.9% 1000 ML*IV.FLUID IV ONE (08:59)
[2018-02-03] MEDS ORDERED: Piperacillin/Tazobac ADVAN(*) 3.375 GM in NS 0.9% 100 ML* 100 ML IVPB ONE (09:00)
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
[2018-02-03 09:25] LABS: ABS Basophils 0.1 10^3/ul (0-0.2); ABS Eosinophils 0.1 10^3/ul (0-0.6); ABS Lymphocytes 0.7 10^3/ul (1.0-4.8); ABS Monocytes 0.6 10^3/ul (0-0.8); ABS Neutrophils 6.3 10^3/ul (1.5-7.7); ABS Nucleated RBC 0 10^3/ul; Eosinophil % 1.5 % (0-6); Hematocrit 32 % (42-52); Hemoglobin 10.6 g/dl (14.0-18.0); INR 0.94 (0.77-1.02); Lymphocyte % 9.4 % (25-47); Mean Corpuscular HGB Conc 33 g/dl (31-36); Mean Corpuscular Hemoglobin 28 pg (27-31); Mean Corpuscular Volume 84 fL (80-94); Mean Platelet Volume 6.4 um3 (7.4-10.4); Nucleated Red Blood Cells % 0; Platelet Count 554 10^3/ul (150-450); Red Blood Count 3.85 10^6/ul (4.00-5.40); Red Cell Distribution Width 14 % (10.5-15); White Blood Count 7.9 10^3/ul (3.5-10.8)
--- NOTE | 2018-02-03 09:56 | RAD ---
INDICATION: Right rib pain COMPARISON: Chest x-ray November 15, 2017 TECHNIQUE: PA and lateral dual-energy views were obtained. FINDINGS: Bones/Soft Tissues: There are no acute bony findings. There is a scoliotic deformity. Cardiomediastinal: The cardiomediastinal silhouette is normal. Lungs: There are no infiltrates. Pleura: There are no pleural effusions. Other: None IMPRESSION: NO ACTIVE DISEASE.
[2018-02-03 10:06] LABS: EGFR Non-African American 123.6 (>60)
[2018-02-03] MEDS ORDERED: Iohexol 300* (CONTRAST) 10 ML SDV IV ONE (11:11)
--- NOTE | 2018-02-03 11:20 | RAD ---
INDICATION: Right flank abscess COMPARISON: CT November 15, 2017 TECHNIQUE: Axial source images were obtained from the hemidiaphragms to the symphysis pubis following administration of oral and intravenous contrast. 92 mL Omnipaque 300 was utilized. Coronal and sagittal reconstructed images were acquired. Lung bases: The lung bases are clear. Liver: The liver is normal in size. There are no masses. There is no ductal dilatation. Gallbladder: There are several tiny gallstones. There is no thickening of the gallbladder wall or pericholecystic fluid. Spleen: The spleen is normal in size. There are no masses. Pancreas: There is no focal pancreatic mass or ductal dilatation. Adrenal glands: There is no evidence of adrenal mass. Kidneys: The kidneys are normal in size and position. There are prompt nephrograms and there is prompt excretion bilaterally. There are no renal parenchymal masses. There is no evidence of nephrolithiasis. Adenopathy: There is right inguinal adenopathy, unchanged. Fluid collections: No discrete fluid collections to suggest abscess. Vessels:There are no significant atherosclerotic changes involving the aorta. There is no focal aneurysm. The iliac vessels are normal in caliber. The IVC appears normal. GI tract: There are no acute bowel findings. There is no oral contrast within the colon. There is moderate stool within the colon. Pelvic organs: Not well evaluated due to beam hardening artifact. Bladder: Right hip arthroplasty results in beam hardening artifact and limits evaluation. Abdominal and pelvic soft tissues: There is again edematous changes superficial soft tissues of the right flank with skin induration. These findings appear essentially unchanged. There is mild prominence of the right flank musculature extending to the gluteal region and in the iliac fossa. The localized fluid collection in the iliacus musculature has essentially resolved. The appearance unchanged. Osseous structures: The appearance of the right hip prosthesis is unchanged. There are sclerotic reactive change in the right hemipelvis in the iliac bone and surrounding the right hip prosthesis, unchanged. This examination cannot exclude osteomyelitis. The appearance is unchanged, however. Other: None IMPRESSION: 1. Scant gallstones, unchanged. 2. No localized fluid collection to suggest abscess. Edematous change with skin induration in the right lower abdomen, right flank, and right gluteal region may reflect a cellulitic process. This examination cannot exclude osteomyelitis as there are sclerotic reactive changes in the right hemipelvis. The appearance unchanged, however. 3. Stable lymphadenopathy right inguinal region.
[2018-02-03 11:52] LABS: Urine Appearance Clear; Urine Blood 1+ (Negative); Urine Color Straw; Urine Ketones Negative (Negative); Urine Protein Negative (Negative); Urine Red Blood Cell 1+(3-5/hpf) (Absent); Urine Specific Gravity 1.008 (1.010-1.030); Urine Urobilinogen Negative (Negative); Urine White Blood Cell 3+(>20/hpf) (Absent)
[2018-02-03] MEDS ORDERED: Morphine INJ* 2 MG/ML 1 ML SYRINGE (TWO MG - NEW SYRINGE VERSION) IV ONE (14:07)
[2018-02-03 15:11] VITALS: BP 120/77
== END 2018-02-03 15:11 | disposition short-term general hospital (02) ==
LOC: ED 08:32
DX: L03.311 Cellulitis of abdominal wall (principal); N39.0 Urinary tract infection, site not specified; I10 Essential (primary) hypertension; F32.9 Major depressive disorder, single episode, unspecified; Z87.891 Personal history of nicotine dependence
CPT/HCPCS: 36415; 71046; 74177; 80053; 81003; 81015; 83605; 83690; 85025; 85610; 85730; 86140; 87040; 87086; 96361; 96374; 96375; 99284; J2270; J2543; Q9967

== ENCOUNTER 2018-02-23 07:19 | Emergency (ER) | payer OTHER ==
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
[2018-02-23] MEDS ORDERED: Alteplase (CATHFLO)* 2 MG VIAL IV ONE (08:05)
[2018-02-23 09:08] VITALS: BP 134/95
== END 2018-02-23 09:07 | disposition home or self-care (01) ==
LOC: ED 07:19
DX: T82.898A Other specified complication of vascular prosthetic devices, implants and grafts, initial encounter (principal); I10 Essential (primary) hypertension; Z96.641 Presence of right artificial hip joint; Z88.1 Allergy status to other antibiotic agents; Z87.891 Personal history of nicotine dependence
CPT/HCPCS: 96374; 99283; J2997

== ENCOUNTER → 2018-11-02 16:23 | Emergency (ER) | payer OTHER ==
[~2018-11-02 16:23] MED LIST: oxyCODONE TAB* 5 MG TAB PO ONE
[2018-11-02 16:34] VITALS: BP 145/111
--- OUTSIDE RECORDS SUMMARY | 2018-11-02 16:40 | XMS REPORT | Continuity of Care Document ---
:1965 External Reference #:[id number] Author Name Leodan Bustillos DO, MPH Address [facility], [address] [place] [address] Care Team Providers Name Role Phone Rosas Dumont M.D. 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 Primary Care Physician Unavailable Payers Date Identification Numbers Payment Provider Subscriber Policy Number: [id number] [facility] Collin Guzman PayID: [id number] [address] Claims Dept [address] [place] [address] Advance Directives Description No Information Available Problems Description No Information Family History Date Family Member(s) Observation Comments Mother due to Lung Cancer () Number of Children 1 Number of Siblings Siblings: 2 Social History Type Date Description Comments Sex Unknown Marital Status Occupation [employer] Work Status Not Currently Working He has been out of work since 03/06/07 due to low back pain. Cigarette Use Former Cigarette Smoker Began smoking at age 14 and quit at age 17. ETOH Use Rarely consumed alcohol in the past Tobacco Use Start: Unknown Patient has never smoked Smoking Status Reviewed: 10/26/18 Patient has never smoked Allergies, Adverse Reactions, Alerts Description No Known Drug Allergies Medications Active Medications SIG Qnty Indications Ordering Provider Date Oxycodone HCL si by mouth 120tabs Leodan Bustillos DO, 01/29/2018 10mg every 4 to 6 MPH Tablets hours as directed chronic pain patient Gabapentin si by mouth Unknown 400mg every 8 as Capsules directed chronic pain. Doxycycline Hyclate si by mouth Unknown every 12 hours as 100mg Tablets directed Amlodipine Besylate si by mouth Unknown every day 5mg Tablets History Medications Oxycodone HCL si by mouth 90tabs Leodan Bustillos DO, 01/15/2018 - 10mg every 8 hours as MPH 01/29/2018 Tablets directed chronic pain patient L-Theanine 1 by mouth three 90caps Bustillos, Leodan, DO, 01/15/2018 - 100mg times a day MPH 01/29/2018 Capsules Opana ER si po q12h ud 60tabs Bustillos, Leodan, DO, 08/28/2007 - 10mg Tablets MPH 10/12/2007 ER 12HR chronic pain patient Avinza si po qam 30caps Bustillos, Leodan, DO, 08/15/2007 - 30mg Caps ER MPH 08/28/2007 24HR chronic pain patient Malena si po qam ud 30caps Bustillos, Leodan, DO, 08/01/2007 - 20mg Caps ER MPH 08/15/2007 24HR chronic pain patient Lisinopril 1 by mouth every Unknown - 10mg Tablets day 10/12/2018 Cefadroxil 1 by mouth daily Unknown - 1gm Tablets 09/13/2018 Riboflavin 3 by mouth daily Unknown - 100mg 01/29/2018 Capsules Opana ER si po q12h ud Unknown - 10mg Tablets 01/29/2018 ER 12HR chronic pain patient Immunizations Description No Information Available Vital Signs Date Vital Result Comment 10/26/2018 11:20am BP Systolic 142 mmHg BP Diastolic 86 mmHg Heart Rate 88 /min Respiratory Rate 20 /min Height 69 inches 5'9" Weight 168.00 lb Pain Level 5 Pain at this time. Pain Level With Medicine 4 on average with meds Pain Level Without Medicine 9 without meds BMI (Body Mass Index) 24.8 kg/m2 10/12/2018 10:32am BP Systolic 136 mmHg BP Diastolic 78 mmHg Heart Rate 80 /min Respiratory Rate 20 /min Height 69 inches 5'9" Weight 166.00 lb Pain Level 4 Pain at this time. Pain Level With Medicine 3 on average with meds Pain Level Without Medicine 7 04/18 without meds BMI (Body Mass Index) 24.5 kg/m2 09/13/2018 10:15am BP Systolic 140 mmHg BP Diastolic 86 mmHg Heart Rate 82 /min Respiratory Rate 20 /min Height 69 inches 5'9" Weight 156.00 lb Pain Level 5 Pain at this time. Pain Level With Medicine 5 on average with meds Pain Level Without Medicine 10 04/18 without meds BMI (Body Mass Index) 23.0 kg/m2 08/30/2018 11:15am BP Systolic 144 mmHg BP Diastolic 88 mmHg Heart Rate 86 /min Respiratory Rate 20 /min Height 69 inches 5'9" Weight 154.00 lb Pain Level 6 Pain at this time. Pain Level With Medicine 5 on average with meds Pain Level Without Medicine 10 04/18 without meds BMI (Body Mass Index) 22.7 kg/m2 07/27/2018 10:08am BP Systolic 144 mmHg BP Diastolic 90 mmHg Heart Rate 112 /min Respiratory Rate 20 /min Height 69 inches 5'9" Weight 160.00 lb Pain Level 6 Pain at this time. Pain Level With Medicine 6 on average with meds Pain Level Without Medicine 10 04/18 without meds BMI (Body Mass Index) 23.6 kg/m2 07/13/2018 1:39pm BP Systolic 132 mmHg BP Diastolic 84 mmHg Heart Rate 86 /min Respiratory Rate 20 /min Height 69 inches 5'9" Weight 169.00 lb Pain Level 8 Pain at this time. Pain Level With Medicine 7 on average with meds Pain Level Without Medicine 10 04/18 without meds BMI (Body Mass Index) 25.0 kg/m2 06/29/2018 10:09am BP Systolic 130 mmHg BP Diastolic 84 mmHg Heart Rate 82 /min Respiratory Rate 20 /min Height 69 inches 5'9" Weight 169.00 lb Pain Level 7 Pain at this time. Pain Level With Medicine 5 on average with meds Pain Level Without Medicine 10 04/18 without meds BMI (Body Mass Index) 25.0 kg/m2 05/28/2018 9:56am BP Systolic 130 mmHg BP Diastolic 74 mmHg Heart Rate 78 /min Respiratory Rate 20 /min Height 69 inches 5'9" Weight 169.00 lb Pain Level 6 Pain at this time. Pain Level With Medicine 5 on average with meds Pain Level Without Medicine 10 04/18 without meds BMI (Body Mass Index) 25.0 kg/m2 04/30/2018 9:47am BP Systolic 128 mmHg BP Diastolic 84 mmHg Heart Rate 80 /min Respiratory Rate 20 /min Height 69 inches 5'9" Weight 162.00 lb Pain Level 5 Pain at this time. Pain Level With Medicine 4 on average with meds Pain Level Without Medicine 10 04/18 without meds BMI (Body Mass Index) 23.9 kg/m2 03/30/2018 10:29am BP Systolic 136 mmHg BP Diastolic 82 mmHg Heart Rate 84 /min Respiratory Rate 20 /min Height 69 inches 5'9" Weight 162.00 lb Pain Level 4 Pain at this time. Pain Level With Medicine 4 on average with meds Pain Level Without Medicine 10 04/18 without meds BMI (Body Mass Index) 23.9 kg/m2 02/21/2018 10:27am BP Systolic 140 mmHg BP Diastolic 86 mmHg Heart Rate 80 /min Respiratory Rate 20 /min Height 69 inches 5'9" Weight 166.00 lb Pain Level 6 Pain at this time. Pain Level With Medicine 5 on average with meds Pain Level Without Medicine 10 04/18 without meds BMI (Body Mass Index) 24.5 kg/m2 01/29/2018 11:33am BP Systolic 148 mmHg BP Diastolic 86 mmHg Heart Rate 82 /min Respiratory Rate 20 /min Height 69 inches 5'9" Weight 160.00 lb Pain Level 8 Pain at this time. Pain Level With Medicine 7 on average with meds Pain Level Without Medicine 10 04/18 without meds BMI (Body Mass Index) 23.6 kg/m2 01/15/2018 9:11am BP Systolic 136 mmHg BP Diastolic 86 mmHg Heart Rate 84 /min Respiratory Rate 20 /min Height 69 inches 5'9" Weight 160.00 lb Pain Level 7 Pain at this time. Pain Level Without Medicine 10 04/18 without meds BMI (Body Mass Index) 23.6 kg/m2 09/11/2007 9:42am BP Systolic 140 mmHg BP Diastolic 84 mmHg Heart Rate 80 /min Height 69 inches 5'9" Weight 176.00 lb Pain Level 1.5 1.5/10, Pain at this time. Pain Level With Medicine 2.5 2.5/10, on average with meds Pain Level Without Medicine 5.5 5.5/10, without meds BMI (Body Mass Index) 26.0 kg/m2 08/28/2007 9:26am BP Systolic 174 mmHg BP Diastolic 104 mmHg Heart Rate 92 /min Height 69 inches 5'9" Weight 184.00 lb Pain Level 5.5 5.5/10, Pain at this time. Pain Level With Medicine 2.5 2.5/10, on average with meds Pain Level Without Medicine 7.5 7.5/10, without meds BMI (Body Mass Index) 27.2 kg/m2 08/15/2007 9:55am BP Systolic 154 mmHg BP Diastolic 104 mmHg Heart Rate 116 /min Height 69 inches 5'9" Weight 180.00 lb Pain Level 7 7/10, Pain at this time.w/o medication this Pain Level With Medicine 2.5 2.5/10, on average with meds Pain Level Without Medicine 7 10, without meds BMI (Body Mass Index) 26.6 kg/m2 08/01/2007 2:33pm BP Systolic 160 mmHg BP Diastolic 96 mmHg Heart Rate 100 /min Height 69 inches 5'9" Weight 171.00 lb Pain Level 9 10, Pain at this time. Pain Level With Medicine 2 2/10, on average with meds Pain Level Without Medicine 9 03/19, without meds BMI (Body Mass Index) 25.2 kg/m2 Results Description No Information Available Procedures Date Code Description Status 09/13/2018 74235 Test Autonomic Nervous System, Sudomotor Completed 09/13/2018 06893 Test Autonomic Nervous System, Cardiovagal Innervation Completed 08/30/2018 73341 Brief Emotional/Behav Assessment W/ Scoring Doc Per Completed Standard Inst 07/27/2018 81795 Therapeutic, Prophylactic Or Diagnostic Injection Subq/Im Completed 07/13/2018 03305 Therapeutic, Prophylactic Or Diagnostic Injection Subq/Im Completed 05/28/2018 80021 Omt 3-4 Body Regions Completed 05/28/2018 97557 Therapeutic, Prophylactic Or Diagnostic Injection Subq/Im Completed 04/30/2018 53280 Omt 5-6 Body Regions Completed 03/30/2018 69545 Therapeutic, Prophylactic Or Diagnostic Injection Subq/Im Completed Encounters Type Date Location Provider Dx Diagnosis Office Visit 10/12/2018 Main Office as Leodan Bustillos G89.28 Other chronic 10:30a Of 08/10/13 DO MPH postprocedural pain M54.2 Cervicalgia M54.5 Low back pain M25.551 Pain in right hip Z79.891 skilled nursing (current) use of opiate analgesic Office Visit 09/13/2018 10:00a Main Office Leodan Bustillos G89.28 Other chronic as Of 08/10/13 DO, MPH postprocedural pain M25.551 Pain in right hip M54.5 Low back pain M54.2 Cervicalgia R53.83 Other fatigue I10 Essential (primary) hypertension Z79.891 skilled nursing (current) use of opiate analgesic G90.3 Multi-system degeneration of the autonomic nervous system Office Visit 08/30/2018 11:00a Main Office Leodan Bustillos G89.28 Other chronic as Of 08/10/13 DO, MPH postprocedural pain M54.2 Cervicalgia M54.5 Low back pain Z13.31 Encounter for screening for depression Z79.891 skilled nursing (current) use of opiate analgesic Office Visit 07/27/2018 10:15a Main Office Leodan Bustillos G89.28 Other chronic as Of 08/10/13 DO, MPH postprocedural pain M54.2 Cervicalgia M54.5 Low back pain R53.83 Other fatigue 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 Office Visit 07/13/2018 1:45p Main Office Leodan Bustillos G89.28 Other chronic as Of 08/10/13 DO, MPH postprocedural pain M54.2 Cervicalgia M54.5 Low back pain 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 R53.83 Other fatigue Office Visit 06/29/2018 10:00a Main Office Leodan Bustillos, G89.28 Other chronic as Of 08/10/13 DO, MPH postprocedural pain M54.2 Cervicalgia M54.6 Pain in thoracic spine M54.5 Low back pain 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 Office Visit 05/28/2018 10:00a Main Office Leodan Bustillos G89.28 Other chronic as Of 08/10/13 DO, MPH postprocedural pain M54.2 Cervicalgia M99.01 Segmental and somatic dysfunction of cervical region M54.6 Pain in thoracic spine M99.02 Segmental and somatic dysfunction of thoracic region M54.5 Low back pain M99.03 Segmental and somatic dysfunction of lumbar region R53.83 Other fatigue 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 Office Visit 04/30/2018 9:45a Main Office Leodan Bustillos G89.28 Other chronic as Of 08/10/13 DO, MPH postprocedural pain R10.84 Generalized abdominal pain M25.551 Pain in right hip R53.83 Other fatigue 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 M54.2 Cervicalgia M99.01 Segmental and somatic dysfunction of cervical region M54.6 Pain in thoracic spine M99.02 Segmental and somatic dysfunction of thoracic region M54.5 Low back pain M99.03 Segmental and somatic dysfunction of lumbar region M99.05 Segmental and somatic dysfunction of pelvic region M53.3 Sacrococcygeal disorders, not elsewhere classified M99.04 Segmental and somatic dysfunction of sacral region Z71.89 Other specified counseling Office Visit 03/30/2018 10:30a Main Office Leodan Bustillos G89.28 Other chronic as Of 08/10/13 DO, MPH postprocedural pain R10.84 Generalized abdominal pain M25.551 Pain in right hip M79.604 Pain in right leg M54.5 Low back pain R53.83 Other fatigue Z79.891 skilled nursing (current) use of opiate analgesic Office Visit 02/21/2018 10:30a Main Office Leodan Bustillos G89.28 Other chronic as Of 08/10/13 DO, MPH postprocedural pain M25.551 Pain in right hip M79.604 Pain in right leg M54.5 Low back pain Z79.891 skilled nursing (current) use of opiate analgesic Office Visit 01/29/2018 11:45a Main Office as Leodan Bustillos G89.29 Other chronic Of 08/10/13 DO, MPH pain M54.5 Low back pain M25.551 Pain in right hip G89.28 Other chronic postprocedural pain M79.604 Pain in right leg Z79.891 skilled nursing (current) use of opiate analgesic Office Visit 01/15/2018 9:00a Main Office as Leodan Bustillos G89.29 Other chronic Of 08/10/13 DO, MPH pain M54.5 Low back pain M46.06 Spinal enthesopathy, lumbar region M25.551 Pain in right hip M79.604 Pain in right leg Z71.3 Dietary counseling and surveillance Z71.89 Other specified counseling Z79.891 skilled nursing (current) use of opiate analgesic Office Visit 09/11/2007 9:15a Main Office as Of Leodan Bustillos DO, 724.2 Lumbago 08/10/13 MPH 720.1 Enthesopathy Spinal Office Visit 08/28/2007 9:00a Main Office as Leodan Bustillos, 847.2 Sprains & Of 08/10/13 DO, MPH Strains Lumbar 720.1 Enthesopathy Spinal 726.5 Enthesopathy Hip 726.19 Shoulder Disorders Other Office Visit 08/15/2007 9:30a Main Office as Leodan Bustillos, 847.2 Sprains & Of 08/10/13 DO, MPH Strains Lumbar 720.1 Enthesopathy Spinal 724.4 Neuritis Or Radiculitis Thoracic Or Lumbosacral Unspec 726.5 Enthesopathy Hip Office Visit 08/01/2007 2:15p Main Office as Leodan Bustillos 847.2 Sprains & Of 08/10/13 DO, MPH Strains Lumbar 720.1 Enthesopathy Spinal 724.4 Neuritis Or Radiculitis Thoracic Or Lumbosacral Unspec 726.5 Enthesopathy Hip Plan of Treatment Future Appointment(s):11/12/2018 10:45 am - Leodan Bustillos DO, MPH at Main Office as Of 08/10/1403 - Leodan Bustillos DO, MPHG89.28 Other chronic postprocedural painComments:Chronic. Symptoms and complaints discussed and reviewed today. No significant changes in physical findings. Continue current medical pain management.M54.2 CervicalgiaComments:Chronic. Symptoms and complaints discussed and reviewed today. No significant changes in physical findings. Continue current medical pain management.M54.5 Low back painComments: Chronic. Symptoms and complaints discussed and reviewed today.No changes in physical findings. Patient is stable and comfortable when current medical therapy is rendered.M25.551 Pain in right hipComments:Chronic. Symptoms and complaints discussed and reviewed today. No significant changes in physical findings. Continue current medical pain management.Z79.891 skilled nursing (current) use of opiate analgesicNew Labs:Urine Drug Screen, Ordered: 10/26/18Comments: Urine drug screen sample taken. Rapid Point of Care Cup was reviewed in office with patient. Will send out UDT Rapid to Quantitative lab for confirmation testing. Urine Drug Testing (UDT) was done today to monitor opiate use and to monitor possible use of illicit substances. I will discuss the results at the next appointment from the Quantitative lab.The following tests were ordered:6 AM , AMPH, JOSE, ARNAV, BUP, CARIS, COCM, COT, ETG, FENT, MCSHSG, OPI, OXY, PCP, TAPEN, XTSY, ZOLP. A urine drug test (UDT) was ordered for this patient and collected on site today. Creatinine has been ordered as well for specimen validity, not for kidney function. Preliminary UDT results are not final and should not be used to determine patient care or plan of treatment. Initially a qualitative immunoassay screen will be done. Any inconsistent or positive findings will be further tested with a more comprehensive quantitative confirmation LCMS study. It is part of the treatment process of prescribing controlled substances and is considered standard of care.Z71.89 Other specified counselingComments:UDT was reviewed with patient. Patient counseled to not use substances for pain relief other than those prescribed, to follow directions and to take medications only as they are prescribed.Reviewed Medication Agreement and requirements for patient to continue receiving opioid therapy. Patient clearly understands and agrees. It is clearly understood that violation of the above is grounds for possible discharge. I will perform confirmatory labs and monitor closely.Patient was placed on two weeks of pain medication and is to return for UDT.AllComments:All above symptoms and complaints discussed as well as diagnoses reviewed.Continue trial of opioid pain management - note changes below; injection therapy, osteopathic manipulation (OMT), PT / modalities, and consults as needed to manage chronic pain.Side effects discussed ; anticipatory guidance given. Patient clearly understands and agrees with all medical treatments and suggestions. All medicines prescribed are adequate and appropriate for this patient's complaint of pain, medical history, physical, and personal goals.Goals of Treatment are to provide adequate and appropriate multidisciplinary medical pain management to increase/ maintain patient's quality of life and functionality while maintaining satisfactory side effect profile and minimizing residential end-organ damage. Activity as toleratedContinue with PCP
--- OUTSIDE RECORDS SUMMARY | 2018-11-02 16:41 | XMS REPORT | Continuity of Care Document ---
:1965 External Reference #:[id number] Author Name Leodan Bustillos DO, MPH Address [address] [place] [address], [address] [place] [address] Care Team Providers Name Role Phone Rosas Dumont M.D. 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 Primary Care Physician Unavailable Payers Date Identification Numbers Payment Provider Subscriber Policy Number: [id number] [facility] Collin Guzman PayID: [id number] [employer] Claims Dept [address] [place] [address] Advance Directives Description No Information Available Problems [...] Patient has never smoked Smoking Status Reviewed: 10/12/18 Patient has never smoked Allergies, Adverse Reactions, Alerts Description No Known Drug Allergies Medications Medication Date Status Form Strength Qnty SIG Indications Ordering Provider Oxycodone HCL Active Tablets 10mg 120tab si by Kimani Bustillos s mouth DO Leodan, every 4 to MPH 6 hours as directed chronic pain patient Gabapentin Active Capsules 400mg si by Unknown 000 mouth every 8 as directed chronic pain. Doxycycline 0 Active Tablets 100mg si by Unknown Hyclate 000 mouth every 12 hours as directed Amlodipine 0 Active Tablets 5mg si by Unknown Besylate 000 mouth every day Oxycodone HCL Hx Tablets 10mg 90tabs si by Bustillos, 018 - mouth Leodan, DO, every 8 MPH 018 hours as directed chronic pain patient L-Theanine Hx Capsules 100mg 90caps 1 by mouth Bustillos, 018 - three Leodan, DO, times a MPH 018 day Opana ER Hx Tablets ER 10mg 60tabs si po Bustillos, 008 - 12HR q12h ud Leodan, DO, MPH 008 chronic pain patient Avinza Hx Caps ER 30mg 30caps si po Bustillos, 008 - 24HR qam Leodan, DO, MPH 008 chronic pain patient Malena Hx Caps ER 20mg 30caps si po Bustillos, 008 - 24HR qam ud Leodan, DO, MPH 008 chronic pain patient Lisinopril /0 Hx Tablets 10mg 1 by mouth Unknown 000 - every day 019 Cefadroxil 00/0 Hx Tablets 1gm 1 by mouth Unknown 000 - daily 019 Riboflavin 00/0 Hx Capsules 100mg 3 by mouth Unknown 000 - daily 018 Opana ER 0000/0 Hx Tablets ER 10mg si po Unknown 000 - 12HR q12h ud 018 chronic pain patient Immunizations Description No Information Available Vital Signs Date Vital Result Comment 10/12/2018 10:32am BP Systolic 136 mmHg BP [...] 5'9" Weight 176.00 lb Pain Level 1.5 1.510, Pain at this time. Pain Level With Medicine 2.5 2.5/10, on average with meds Pain Level Without Medicine 5.5 5./10, without meds BMI (Body Mass Index) 26.0 kg/m2 08/28/2007 9:26am BP Systolic 174 mmHg BP Diastolic 104 mmHg Heart Rate 92 /min Height 69 inches 5'9" Weight 184.00 lb Pain Level 5.5 5.5/10, Pain at this time. Pain Level With Medicine 2.5 2.5/10, on average with meds Pain Level Without Medicine 7.5 7.10, without meds BMI (Body Mass Index) 27.2 kg/m2 08/15/2007 9:55am BP Systolic 154 mmHg BP Diastolic 104 mmHg Heart Rate 116 /min Height 69 inches 5'9" Weight 180.00 lb Pain Level 7 10, Pain at this time.w/o medication this Pain Level With Medicine 2.5 2.5/10, on average with meds Pain Level Without Medicine 7 01/16, without meds BMI (Body Mass Index) 26.6 kg/m2 08/01/2007 2:33pm BP Systolic 160 mmHg BP Diastolic 96 mmHg Heart Rate 100 /min Height 69 inches 5'9" Weight 171.00 lb Pain Level 9 03/19, Pain at this time. Pain Level With Medicine 2 2/10, on average with meds Pain Level Without Medicine 9 03/19, without meds BMI (Body Mass Index) 25.2 kg/m2 Results Description No Information Available Procedures Date Code Description Status 09/13/2018 24982 Test Autonomic Nervous System, Sudomotor Completed 09/13/2018 86325 Test Autonomic Nervous System, Cardiovagal Innervation Completed 08/30/2018 37408 Brief Emotional/Behav Assessment W/ Scoring Doc Per Completed Standard Inst 07/27/2018 81146 Therapeutic, Prophylactic Or Diagnostic Injection Subq/Im Completed 07/13/2018 09439 Therapeutic, Prophylactic Or Diagnostic Injection Subq/Im Completed 05/28/2018 59106 Omt 3-4 Body Regions Completed 05/28/2018 39556 Therapeutic, Prophylactic Or Diagnostic Injection Subq/Im Completed 04/30/2018 26307 Omt 5-6 Body Regions Completed 03/30/2018 28019 Therapeutic, Prophylactic Or Diagnostic Injection Subq/Im Completed Encounters Type Date Location Provider Dx Diagnosis Office Visit 10/12/2018 Main Office as Leodan Bustillos G89.28 Other chronic 10:30a Of 08/10/13 DO, MPH postprocedural pain M54.2 Cervicalgia M54.5 Low back pain M25.551 Pain in right hip Z79.891 [facility] (current) use of opiate analgesic Office Visit 09/13/2018 10:00a Main Office Leodan Bustillos G89.28 Other chronic as Of 08/10/13 DO, MPH postprocedural pain M25.551 Pain in right hip M54.5 Low back pain M54.2 Cervicalgia R53.83 Other fatigue I10 Essential (primary) hypertension Z79.891 [facility] (current) use of opiate analgesic G90.3 Multi-system degeneration of the autonomic nervous system Office Visit 08/30/2018 11:00a Main Office Leodan Bustillos, G89.28 Other chronic as Of 08/10/13 DO, MPH postprocedural pain M54.2 Cervicalgia M54.5 Low back pain Z13.31 Encounter for screening for depression Z79.891 [facility]PC (current) use of opiate analgesic Office Visit 07/27/2018 10:15a Main Office Leodan Bustillos G89.28 Other chronic as Of 08/10/13 DO, MPH postprocedural pain M54.2 Cervicalgia M54.5 Low back pain R53.83 Other fatigue Z79.891 FPC (current) use of opiate analgesic Office Visit 07/13/2018 1:45p Main Office Leodan Bustillos G89.28 Other chronic as Of 08/10/13 DO, MPH postprocedural pain M54.2 Cervicalgia M54.5 Low back pain Z79.891 [facility]PC (current) use of opiate analgesic R53.83 Other fatigue Office Visit 06/29/2018 10:00a Main Office Leodan Bustillos G89.28 Other chronic as Of 08/10/13 DO, MPH postprocedural pain M54.2 Cervicalgia M54.6 Pain in thoracic spine M54.5 Low back pain 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 Office Visit 05/28/2018 10:00a Main Office Leodan Bustillos G89.28 Other chronic as Of 08/10/13 DO, MPH postprocedural pain M54.2 Cervicalgia M99.01 Segmental and somatic dysfunction of cervical region M54.6 Pain in thoracic spine M99.02 Segmental and somatic dysfunction of thoracic region M54.5 Low back pain M99.03 Segmental and somatic dysfunction of lumbar region R53.83 Other fatigue Z79.891 FPC (current) use of opiate analgesic Office Visit 04/30/2018 9:45a Main Office Leodan Bustillos G89.28 Other chronic as Of 08/10/13 DO, MPH postprocedural pain R10.84 Generalized abdominal pain M25.551 Pain in right hip R53.83 Other fatigue Z79.891 [facility]PC (current) use of opiate analgesic M54.2 Cervicalgia [...] Low back pain R53.83 Other fatigue 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 Office Visit 02/21/2018 10:30a Main Office Leodan Bustillos G89.28 Other chronic as Of 08/10/13 DO, MPH postprocedural pain M25.551 Pain in right hip M79.604 Pain in right leg M54.5 Low back pain 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 Office Visit 01/29/2018 11:45a Main Office as Leodan Bustillos G89.29 Other chronic Of 08/10/13 DO, MPH pain M54.5 Low back pain M25.551 Pain in right hip G89.28 Other chronic postprocedural pain M79.604 Pain in right leg 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 Continue current medical pain management.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New Labs:Urine Drug Screen, Ordered: 10/12/18Comments: Urine drug screen sample taken. [place] [...] collected on site today. Creatinine has been orderedas well for specimen validity, not for kidney [...] controlled substances and is considered standard of care.AllComments:All above symptoms and complaints discussed as well as diagnoses reviewed.Continue trial of opioid pain management - note changes below; injection therapy, osteopathic manipulation (OMT), PT / modalities, and consults as needed to manage chronic pain.Side effects discussed; anticipatory guidance given. Patient clearly understands and agrees with all medical treatments and suggestions. All medicines prescribed are adequate and appropriate for this patient's complaint of pain, medical history, physical, and personal goals.Goals of Treatment are to provide adequate and appropriate multidisciplinary medical pain management to increase/ maintain patient's quality of life and functionality while maintaining satisfactory side effect profile and minimizing care home end-organ damage. Activity as toleratedContinue with PCP
--- NOTE | 2018-11-02 17:24 | ED ---
Lower Extremity - HPI Summary HPI Summary: Pt is a 53 y/o M presenting to the ED with a chief complaint of R hip pain. He has had numerous surgeries on his R hip with osteomyelitis as a resulting complication. He states the pain has gotten worse and his hip is edematous, he called Dr. Solis office, and a nurse advised him to come to the ED. He has an appointment with Dr. Beauchamp on 11/15/18. He denies fever. - History of Current Complaint Chief Complaint: EDGeneral Stated Complaint: RT SIDE PAIN PER PT Time Seen by Provider: 11/02/18 17:12 Hx Obtained From: Patient Mechanism Of Injury: Other - infection Onset/Duration: Still Present Severity Initially: Moderate Severity Currently: Severe Pain Intensity: 9 Pain Scale Used: 0-10 Numeric Timing: Constant, Lasting Weeks Location: Is Discrete @ - R hip Character Of Pain: Aching Associated Signs And Symptoms: Positive: Swelling. Negative: Fever Aggravating Factor(s): Nothing Alleviating Factor(s): Nothing - Allergies/Home Medications Allergies/Adverse Reactions: Allergies Allergy/AdvReac Type Severity Reaction Status Date / Time vancomycin Allergy See Comment Verified 07/30/18 15:04 Home Medications: Home Medications amLODIPine TAB* [Norvasc 5 mg TAB*] 5 mg PO DAILY 11/02/18 [History Confirmed ] PMH/Surg Hx/FS Hx/Imm Hx Previously Healthy: No Endocrine/Hematology History: Denies: Hx Diabetes, Hx Thyroid Disease Cardiovascular History: Reports: Hx Hypertension - on medication Denies: Hx Pacemaker/ICD Respiratory History: Denies: Hx Asthma, Hx Chronic Obstructive Pulmonary Disease (COPD) GI History: Denies: Hx Ulcer History: Denies: Hx Renal Disease Musculoskeletal History: Reports: Hx Arthritis, Hx Orthopedic Injury - fractured right hip and pelvis, Other Musculoskeletal History Sensory History: Reports: Hx Contacts or Glasses Denies: Hx Hearing Aid Opthamlomology History: Reports: Hx Contacts or Glasses Psychiatric History: Reports: Hx Anxiety, Hx Depression Denies: Hx Panic Disorder - Surgical History Surgery Procedure, Year, and Place: REPAIRED PELVIS/RIGHT HIP REPLACEMENT 5 SURGERIES BETWEEN . Hardware removal from R hip 2017 Infectious Disease History: No Infectious Disease History: Reports: Hx of Known/Suspected MRSA Denies: Hx Clostridium Difficile, Hx Hepatitis, Hx Human Immunodeficiency Virus (HIV), Hx Shingles, Hx Tuberculosis, Hx Known/Suspected VRE, Hx Known/ Suspected VRSA, History Other Infectious Disease, Traveled Outside the [place] in Last 30 Days - Family History Known Family History: Positive: Hypertension - Social History Alcohol Use: None Substance Use Type: Reports: Marijuana Substance Use Comment - Amount & Last Used: 2 x week Hx Tobacco Use: No Smoking Status (MU): Former Smoker Review of Systems Negative: Fever Positive: Arthralgia, Edema All Other Systems Reviewed And Are Negative: Yes Physical Exam - Summary Physical Exam Summary: Appearance: The patient is well-nourished in no acute distress and in no acute pain. Skin: The skin is warm and dry and skin color reflects adequate perfusion. HEENT: The head is normocephalic and atraumatic. The pupils are equal and reactive. The conjunctivae are clear and without drainage. Nares are patent and without drainage. Mouth reveals moist mucous membranes and the throat is without erythema and exudate. The external ears are intact. The ear canals are patent and without drainage. The tympanic membranes are intact. Neck: The neck is supple with full range of motion and non-tender. There are no carotid bruits. There is no neck vein distension. Respiratory: Chest is non-tender. Lungs are clear to auscultation and breath sounds are symmetrical and equal. Cardiovascular: Heart is regular rate and rhythm. There is no murmur or rub auscultated. There is no peripheral edema and pulses are symmetrical and equal. Abdomen: The abdomen is soft and non-tender. There are normal bowel sounds heard in all four quadrants and there is no organomegaly palpated. Musculoskeletal: There is no back tenderness noted. Mild tenderness to internal and external rotation of his R hip. There is good capillary refill. There is no peripheral edema or calf tenderness elicited. Neurological: Patient is alert and oriented to person, place and time. The patient has symmetrical motor strength in all four extremities. Cranial nerves are grossly intact. Deep tendon reflexes are symmetrical and equal in all four extremities. Psychiatric: The patient has an appropriate affect and does not exhibit any anxiety or depression. Triage Information Reviewed: Yes Vital Signs On Initial Exam: Initial Vitals Temp Pulse Resp BP Pulse Ox 98.6 F 89 20 145/111 98 11/02/18 16:29 11/02/18 16:29 11/02/18 16:29 11/02/18 16:29 11/02/18 16:29 Vital Signs Reviewed: Yes Diagnostics - Vital Signs Vital Signs Temp Pulse Resp BP Pulse Ox 11/02/18 16:29 98.6 F 89 20 145/111 98 - Laboratory Lab Statement: Any lab studies that have been ordered have been reviewed, and results considered in the medical decision making process. Lower Extremity Course/Dx - Course Course Of Treatment: After I interviewed Mr. Guzman, he asked for pain medications and I said I would order them. I ordered labs and pain medication for him and when the nurse went back in the room he was gone. He did not announces intention or stated reason. He apparently was walking on his hip although it was painful. - Diagnoses Provider Diagnoses: Right hip pain Discharge - Sign-Out/Discharge Documenting (check all that apply): Patient Departure Patient Received Moderate/Deep Sedation with Procedure: No - Discharge Plan Condition: Stable Disposition: AGAINST MEDICAL ADVICE Referrals: Rosas Dumont MD [Primary Care Provider] - - Billing Disposition and Condition Condition: STABLE Disposition: Against Medical Advice - Attestation Statements Document Initiated by Scribe: Yes Documenting Scribe: Maria Eugenia Torres Provider For Whom Scribe is Documenting (Include Credential): Nicolás Castañeda MD. Scribe Attestation: I, Maria Eugenia Torres, scribed for Nicolás Castañeda MD. on 11/02/18 at 1816. Scribe Documentation Reviewed: Yes Provider Attestation: The documentation as recorded by the scribe, Maria Eugenia Torres accurately reflects the service I personally performed and the decisions made by me, Nicolás Castañeda MD. Status of Scribe Document: Viewed
== END | disposition left against medical advice (07) ==
LOC: ED 16:23
DX: M25.551 Pain in right hip (principal); I10 Essential (primary) hypertension; F41.9 Anxiety disorder, unspecified; F32.9 Major depressive disorder, single episode, unspecified; Z87.891 Personal history of nicotine dependence
CPT/HCPCS: 99282

== ENCOUNTER 2018-11-14 12:35 | Emergency (ER) | payer OTHER ==
[2018-11-14 12:51] VITALS: BP 157/113
== END 2018-11-14 14:03 | disposition left against medical advice (07) ==
LOC: ED 12:35
DX: R10.9 Unspecified abdominal pain (principal); Z53.21 Procedure and treatment not carried out due to patient leaving prior to being seen by health care provider

== ENCOUNTER 2018-11-16 07:36 | Emergency (ER) | payer OTHER ==
[2018-11-16 07:42] VITALS: BP 161/115
--- NOTE | 2018-11-16 08:48 | ED ---
Skin Complaint - HPI Summary HPI Summary: Patient is a 53-year-old male who presents to the ED with complaint of right lower quadrant abscess. He states he was seen at surgery care yesterday and was to see Dr. Carbone but left as he did not want to the procedure at that time. He returns today with a request for abscess drainage. He states he has been on antibiotics and has seen GERALD Granger and Daron Aviles both from [place]. He is very agitated on arrival. - History of Current Complaint Chief Complaint: EDRashSkinAbscess Time Seen by Provider: 11/16/18 07:48 Stated Complaint: ABCESS THAT NEEDS TO BE DRAINED PER PT Hx Obtained From: Patient Onset/Duration: Worse Since - 1 week Timing: Constant Onset Severity: Severe Current Severity: Severe Pain Intensity: 8 Pain Scale Used: 0-10 Numeric Skin Location: Discrete - RLQ U Aggravating Symptom(s): Nothing Alleviating Symptom(s): Nothing - Additional Pertinent History Primary Care Physician: PHIL - Allergy/Home Medications Allergies/Adverse Reactions: Allergies Allergy/AdvReac Type Severity Reaction Status Date / Time vancomycin Allergy See Comment Verified 11/16/18 09:53 Home Medications: Home Medications Cefpodoxime (NF) [Vantin 200 MG TAB (NF)] 200 mg PO Q12H 11/16/18 [History Confirmed 11/16/18] PMH/Surg Hx/FS Hx/Imm Hx Previously Healthy: Yes Endocrine/Hematology History: Denies: Hx Diabetes, Hx Thyroid Disease Cardiovascular History: Reports: Hx Hypertension - on medication Denies: Hx Pacemaker/ICD Respiratory History: Denies: Hx Asthma, Hx Chronic Obstructive Pulmonary Disease (COPD) GI History: Denies: Hx Ulcer History: Denies: Hx Renal Disease Musculoskeletal History: Reports: Hx Arthritis, Hx Orthopedic Injury - fractured right hip and pelvis, Other Musculoskeletal History Sensory History: Reports: Hx Contacts or Glasses Denies: Hx Hearing Aid Opthamlomology History: Reports: Hx Contacts or Glasses Psychiatric History: Reports: Hx Anxiety, Hx Depression Denies: Hx Panic Disorder - Surgical History Surgery Procedure, Year, and Place: REPAIRED PELVIS/RIGHT HIP REPLACEMENT 5 SURGERIES BETWEEN . Hardware removal from R hip 2017 - Immunization History Hx Pertussis Vaccination: No Immunizations Up to Date: Yes Infectious Disease History: No Infectious Disease History: Reports: Hx of Known/Suspected MRSA Denies: Hx Clostridium Difficile, Hx Hepatitis, Hx Human Immunodeficiency Virus (HIV), Hx Shingles, Hx Tuberculosis, Hx Known/Suspected VRE, Hx Known/ Suspected VRSA, History Other Infectious Disease, Traveled Outside the [place] in Last 30 Days - Family History Known Family History: Positive: Hypertension - Social History Occupation: Unemployed Lives: Alone Alcohol Use: None Hx Substance Use: No Substance Use Type: Reports: Marijuana Substance Use Comment - Amount & Last Used: 2 x week Hx Tobacco Use: No Smoking Status (MU): Former Smoker Review of Systems Negative: Fever, Chills, Fatigue, Skin Diaphoresis Negative: Palpitations, Chest Pain Negative: Shortness Of Breath, Cough Genitourinary: Negative Positive: no symptoms reported, see HPI Negative: Arthralgia, Myalgia Skin: Negative Positive: Other - RLQ abscess Neurological: Negative All Other Systems Reviewed And Are Negative: Yes Physical Exam Triage Information Reviewed: Yes Vital Signs On Initial Exam: Initial Vitals Temp Pulse Resp BP Pulse Ox 98.7 F 116 16 161/115 97 11/16/18 07:38 11/16/18 07:38 11/16/18 07:38 11/16/18 07:38 11/16/18 07:38 Vital Signs Reviewed: Yes Appearance: Positive: Well-Appearing, Well-Nourished Skin: Positive: Skin Color Reflects Adequate Perfusion, Other - RLQ pain abscess Head/Face: Positive: Normal Head/Face Inspection Eyes: Positive: EOMI, JANAE, Conjunctiva Clear Neck: Positive: Supple, No Lymphadenopathy Respiratory/Lung Sounds: Positive: Clear to Auscultation, Breath Sounds Present Cardiovascular: Positive: RRR, Pulses are Symmetrical in both Upper and Lower Extremities Musculoskeletal: Positive: Strength/ROM Intact Neurological: Positive: Speech Normal Psychiatric: Positive: Depressed, Patient Uncooperative for Exam AVPU Assessment: Alert Diagnostics - Vital Signs Vital Signs Temp Pulse Resp BP Pulse Ox 11/16/18 07:38 98.7 F 116 16 161/115 97 - Laboratory Lab Statement: Any lab studies that have been ordered have been reviewed, and results considered in the medical decision making process. Course/Dx - Course Course Of Treatment: On arrival into the ED, patient is obviously agitated. As I walked in the room and began to ask about his symptoms and his history, he became very upset, stating he doesn't want this drained by someone "who doesn't already know what the hell is going on." I have sat down with the patient and discussed at length that as a provider in the emergency room, I have little knowledge of his history but am still able to provide him care and during the obvious abscess that is in his right lower quadrant. He states "I am sick of dealing with this and I don't want to go through the pain." Again, I have discussed I and D is often painful, however we use local numbing medication. He states he would like to be "out" for this. At this time he states he would not like this drained and despite my recommendations for following up with surgery, he states he would not like to follow-up with anyone at this point. He would like to sign out AMA. AMA forms signed at 8:35 AM and patient leaves. Vital signs were stable prior to discharge. Called [facility] and left message at 8:37a and spoke with Dr. Carbone (surgery recreational director) at 8:40a who confirms patient left office yesterday without being seen. Bárbara came to ED to discuss case with me. She is willing to call back the patient to see the patient is willing to return to the ED to have abscess drained. Labs from yesterday appeared to have been improved with a lower CRP. He is endorsing pain to the right side and states this is consistent every time he takes his antibiotics. Signed out AMA. - Diagnoses Provider Diagnoses: Abscess Discharge - Sign-Out/Discharge Documenting (check all that apply): Patient Departure Patient Received Moderate/Deep Sedation with Procedure: No - Discharge Plan Condition: Fair Disposition: AGAINST MEDICAL ADVICE Referrals: Rosas Dumont MD [Primary Care Provider] - - Billing Disposition and Condition Condition: FAIR Disposition: Against Medical Advice
== END 2018-11-16 08:39 | disposition left against medical advice (07) ==
LOC: ED 07:36
DX: L02.211 Cutaneous abscess of abdominal wall (principal); I10 Essential (primary) hypertension; F41.9 Anxiety disorder, unspecified; F32.9 Major depressive disorder, single episode, unspecified; Z88.3 Allergy status to other anti-infective agents; Z79.899 Other long term (current) drug therapy; Z86.14 Personal history of Methicillin resistant Staphylococcus aureus infection; Z87.891 Personal history of nicotine dependence; Z53.20 Procedure and treatment not carried out because of patient's decision for unspecified reasons
CPT/HCPCS: 87070; 87205; 99282

== ENCOUNTER → 2018-11-16 09:41 | Emergency (ER) | payer OTHER ==
[~2018-11-16 09:41] MED LIST changes: +LORazepam TAB(*) 1 MG PO ONE; -oxyCODONE TAB* 5 MG TAB PO ONE
[2018-11-16 11:33] VITALS: BP 135/94
--- NOTE | 2018-11-16 12:13 | ED ---
Skin Complaint - HPI Summary HPI Summary: Patient presents to the ED for the second time today for request for abscess drainage. He was called by Bárbara Ambrosio NP to return to the ED and he agrees. Bárbara discussed this with me prior to patient's arrival. Patient states he is willing to have the abscess drained at this point. He denies any other symptoms. Denies F/S/C. - History of Current Complaint Chief Complaint: EDRashSkinAbscess Time Seen by Provider: 11/16/18 09:54 Stated Complaint: ABCESS PER PT Hx Obtained From: Patient Onset/Duration: Started Weeks Ago Skin Exposure Onset/Duration: Hours Ago, Weeks Ago Onset Severity: Moderate Current Severity: Moderate Pain Intensity: 6 Pain Scale Used: 0-10 Numeric Skin Location: Discrete - RLQ, Abdomen Aggravating Symptom(s): Nothing Alleviating Symptom(s): Nothing Associated Signs & Symptoms: Negative - Additional Pertinent History Primary Care Physician: PHIL - Allergy/Home Medications Allergies/Adverse Reactions: Allergies Allergy/AdvReac Type Severity Reaction Status Date / Time vancomycin Allergy See Comment Verified 11/16/18 09:53 PMH/Surg Hx/FS Hx/Imm Hx Previously Healthy: Yes Endocrine/Hematology History: Denies: Hx Diabetes, Hx Thyroid Disease Cardiovascular History: Reports: Hx Hypertension - on medication Denies: Hx Pacemaker/ICD Respiratory History: Denies: Hx Asthma, Hx Chronic Obstructive Pulmonary Disease (COPD) GI History: Denies: Hx Ulcer History: Denies: Hx Renal Disease Musculoskeletal History: Reports: Hx Arthritis, Hx Orthopedic Injury - fractured right hip and pelvis, Other Musculoskeletal History Sensory History: Reports: Hx Contacts or Glasses Denies: Hx Hearing Aid Opthamlomology History: Reports: Hx Contacts or Glasses Psychiatric History: Reports: Hx Anxiety, Hx Depression Denies: Hx Panic Disorder - Surgical History Surgery Procedure, Year, and Place: REPAIRED PELVIS/RIGHT HIP REPLACEMENT 5 SURGERIES BETWEEN . Hardware removal from R hip 2017 - Immunization History Hx Pertussis Vaccination: No Immunizations Up to Date: Yes Infectious Disease History: No Infectious Disease History: Reports: Hx of Known/Suspected MRSA Denies: Hx Clostridium Difficile, Hx Hepatitis, Hx Human Immunodeficiency Virus (HIV), Hx Shingles, Hx Tuberculosis, Hx Known/Suspected VRE, Hx Known/ Suspected VRSA, History Other Infectious Disease, Traveled Outside the [place] in Last 30 Days - Family History Known Family History: Positive: Hypertension - Social History Occupation: Unemployed, Disabled Lives: With Family Alcohol Use: None Hx Substance Use: No Substance Use Type: Reports: Marijuana Substance Use Comment - Amount & Last Used: 2 x week Hx Tobacco Use: No Smoking Status (MU): Former Smoker Review of Systems Constitutional: Negative Negative: Fever, Chills, Fatigue, Skin Diaphoresis Negative: Shortness Of Breath, Cough Negative: Abdominal Pain, Vomiting, Diarrhea, Nausea Genitourinary: Negative Positive: no symptoms reported, see HPI Negative: Arthralgia, Myalgia Positive: Other - RLQ abscess Neurological: Negative All Other Systems Reviewed And Are Negative: Yes - like Physical Exam Triage Information Reviewed: Yes Vital Signs On Initial Exam: Initial Vitals Temp Pulse Resp BP Pulse Ox 99.1 F 107 16 148/113 98 11/16/18 09:50 11/16/18 09:50 11/16/18 09:50 11/16/18 09:50 11/16/18 09:50 Vital Signs Reviewed: Yes Appearance: Positive: Well-Appearing, No Pain Distress Skin: Positive: Warm, Skin Color Reflects Adequate Perfusion, Other - RLQ pain Head/Face: Positive: Normal Head/Face Inspection Eyes: Positive: EOMI, JANAE, Conjunctiva Clear Neck: Positive: Supple, No Lymphadenopathy Respiratory/Lung Sounds: Positive: Clear to Auscultation, Breath Sounds Present Cardiovascular: Positive: RRR, Pulses are Symmetrical in both Upper and Lower Extremities Musculoskeletal: Positive: Normal, Strength/ROM Intact Neurological: Positive: Sensory/Motor Intact, Alert, Oriented to Person Place, Time, Speech Normal Psychiatric: Positive: Normal, Affect/Mood Appropriate AVPU Assessment: Alert Procedures - Incision and Drainage Right Lower Anterior Abdomen Anesthesia: Local Instrument(s): Scalpel Packing: Gauze Diagnostics - Vital Signs Vital Signs Temp Pulse Resp BP Pulse Ox 11/16/18 11:10 98.3 F 80 16 135/94 98 11/16/18 10:15 17 11/16/18 09:50 99.1 F 107 16 148/113 98 - Laboratory Lab Statement: Any lab studies that have been ordered have been reviewed, and results considered in the medical decision making process. Course/Dx - Course Course Of Treatment: On physical examination, there is a 3.5 cm x 1.5 cm somewhat fluctuant mass to the RLQ/R hip area with some surrounding erythema resembing an abscess. Discussed with the patient I and D and patient agrees. Lidocaine without epi 1% - 2ml used as local. Patient tolerated well. 1.2cm incision made to the most superior portion of mass with small amount of purulent drainage and blood. Surrounding tissue to the area makes up most of the mass. This appears to be newly formed scar tissue vs lipoma with small amount of abscess underlying. Using forceps, opened up wound and attempted to find loculated areas. Edges intact and no tracts found. 6.0cm iodoform dressing into wound. Gauze covered. Iodoform gauze removal in 2 days. Bárbara Billy-lenora to see patient in the ED as well. During the ED course, patient is given 1mg ativan and prescribed 6 tabs tramadol for 2 days pain coverage. - Diagnoses Provider Diagnoses: Abscess Discharge - Sign-Out/Discharge Documenting (check all that apply): Patient Departure Patient Received Moderate/Deep Sedation with Procedure: No - Discharge Plan Condition: Stable Disposition: HOME Prescriptions: traMADol TAB* [Ultram*] 50 mg PO Q8H PRN #6 tab MDD 3 PRN Reason: Pain Referrals: Rosas Dumont MD [Primary Care Provider] - Additional Instructions: As discussed, there was a lot of tissue and very little purulent drainage Continue with your antibiotics and obtain CT scan next week Drainage removal in 2-3 days - Billing Disposition and Condition Condition: STABLE Disposition: Home
== END | disposition home or self-care (01) ==
LOC: ED 09:41
DX: L02.211 Cutaneous abscess of abdominal wall (principal); I10 Essential (primary) hypertension; F41.9 Anxiety disorder, unspecified; F32.9 Major depressive disorder, single episode, unspecified; Z88.3 Allergy status to other anti-infective agents; Z79.899 Other long term (current) drug therapy; Z86.14 Personal history of Methicillin resistant Staphylococcus aureus infection; Z87.891 Personal history of nicotine dependence
CPT/HCPCS: 10060; 99281; A9270-GY

== ENCOUNTER 2019-03-26 09:35 | Emergency (ER) | payer OTHER ==
--- OUTSIDE RECORDS SUMMARY | 2019-03-26 09:55 | XMS REPORT | Continuity of Care Document ---
:1965 External Reference #:[id number] Author Name Bárbara Simental NP (transmitted by agent of provider Olivia Santos) Address [address] [facility] [place] [address] Care Team Providers Name Role Phone Jim Wallace MD - Orthopaedic Trauma Care Team Information Dispatcher [place] [phone] Rosas Dumont MD - Internal Care Team Information Dispatcher [place] [phone] Medicine Problems Active Problems Provider Date Essential hypertension Rani Briceno NArmidaPArmida Onset: 05/19/2016 Fracture of pelvis Roberto Cervantes M.D. Onset: 09/02/2014 Depressive disorder Roberto Cervantes M.D. Onset: 09/02/2014 Gastroesophageal reflux disease Roberto Cervantes M.D. Onset: 09/02/2014 History of alcohol abuse Roberto Cervantes M.D. Onset: 09/02/2014 Acute renal failure syndrome Brijesh Mueller M.D. Onset: 08/09/2016 Note: In setting of vancomycin and pre renal state (nausea/vomiting) Acute urinary tract infection Brijesh Mueller M.D. Onset: 08/09/2016 Note: With indwelling betlre Social History Type Date Description Comments Sex Unknown Smokeless Tobacco Never Used Smokeless Tobacco ETOH Use consumed 6-7 beers per x 35 years Has not week had any alcohol since 2014 Tobacco Use Start: Unknown Patient is a former Quit End: Unknown smoker Recreational Drug Use Current Drug User Marijuana occasionally Smoking Status Reviewed: 02/27/19 Patient is a former Quit smoker Exercise Type/Frequency Does not exercise Allergies, Adverse Reactions, Alerts Description No Known Drug Allergies Medications Active Medications SIG Qnty Indications Ordering Provider Date Doxycycline Hyclate 1 cap by mouth 60caps M86.60 Chava D. 02/15/2019 twice a day with Mandeep Aviles 100mg Capsules food Cefpodoxime Proxetil 1 by mouth twice 60tabs M86.60 Chava D. 02/15/2019 daily Mandeep Aviles 200mg Tablets Blood Pressure ck in in the 1units I10 Emani Nails, 10/24/2014 Monitor Automatic morning and M.D. With Large Cuff evening Kit Multi For Him 1 by mouth every Unknown Capsules day Ibuprofen 1 tab three times 90tabs Leodan Sifuentes NP 600mg Tablets daily as needed for pain Gabapentin take one capsule Unknown 400mg by mouth 3 times Capsules a day Immunizations CPT Code Status Date Vaccine Lot # [id number] Given 05/16/2018 Influenza Virus Vaccine, Quadrivalent, Split, [id number] Preservative Free 23201 Given 05/20/2016 Influ Virus Vaccine, Quadrivalent, Split Virus, [id number] [id number] Given 06/02/2015 Influenza Virus Vaccine, Quadrivalent, Split, [id number] Preservative Free Vital Signs Date Vital Result Comment 02/27/2019 3:56pm Height 69 inches 5'9" Weight 162.50 lb Heart Rate 84 /min BP Systolic Sitting 120 mmHg BP Diastolic Sitting 82 mmHg Respiratory Rate 14 /min Body Temperature 98.4 F BMI (Body Mass Index) 24.0 kg/m2 01/17/2019 3:24pm Height 69 inches 5'9" Weight 166.38 lb Heart Rate 92 /min BP Systolic Sitting 138 mmHg BP Diastolic Sitting 80 mmHg Respiratory Rate 14 /min Body Temperature 99.0 F BMI (Body Mass Index) 24.6 kg/m2 Results Test Date Facility Test Result H/L Range Note Laboratory test 02/11/2019 [facility] C Reactive 63.48 mg/L High <8.[address] [place] [address] [phone] Laboratory test 01/14/2019 [facility] C Reactive 44.52 mg/L High <8.[address] [place] [address] [phone] Comp Metabolic 01/14/2019 [facility] Sodium 137 mmol/L Normal 135-145 Panel [address] [place] [address] [phone] Potassium 4.6 mmol/L Normal 3.5-5.0 Chloride 98 mmol/L Low 101-111 Co2 Carbon Dioxide 32 mmol/L Normal 22-32 Anion Gap 7 mmol/L Normal 2-11 Glucose 77 mg/dL Normal 70-100 Blood Urea Nitrogen 13 mg/dL Normal 6-24 Creatinine 0.82 mg/dL Normal 0.67-1.17 BUN/Creatinine Ratio 15.9 Normal 8-20 Calcium 9.7 mg/dL Normal 8.6-10.3 Total Protein 7.4 g/dL Normal 6.4-8.9 Albumin 4.1 g/dL Normal 3.2-5.2 Globulin 3.3 g/dL Normal 2-4 Albumin/Globulin Ratio 1.2 Normal 1-3 Total Bilirubin 0.40 mg/dL Normal 0.2-1.0 Alkaline Phosphatase 104 U/L Normal 34-104 Alt 26 U/L Normal 7-52 Ast 19 U/L Normal 13-39 Egfr Non- 97.5 >60 Egfr 118.0 >60 1 CBC Auto 01/14/2019 [facility] White Blood 9.5 10^3/uL Normal 3.5-10.[address] [place] [address] [phone] Red Blood Count 4.44 10^6/uL Normal 4.18-5.48 Hemoglobin 12.0 g/dL Low 14.0-18.0 Hematocrit 36 % Low 42-52 Mean Corpuscular Volume 82 fL Normal 80-94 Mean Corpuscular Hemoglobin 27 pg Normal 27-31 Mean Corpuscular HGB Conc 33 g/dL Normal 31-36 Red Cell Distribution Width 16 % High 10-15 Platelet Count 498 10^3/uL High 150-450 Mean Platelet Volume 7.1 fL Low 7.4-10.4 Abs Neutrophils 7.3 10^3/uL Normal 1.5-7.7 Abs Lymphocytes 1.6 10^3/uL Normal 1.0-4.8 Abs Monocytes 0.5 10^3/uL Normal 0-0.8 Abs Eosinophils 0.1 10^3/uL Normal 0-0.6 Abs Basophils 0.1 10^3/uL Normal 0-0.2 Abs Nucleated RBC 0.0 10^3/uL Granulocyte % 76.7 % Lymphocyte % 16.8 % Monocyte % 5.3 % Eosinophil % 0.6 % Basophil % 0.6 % Nucleated Red Blood Cells % 0.0 Urinalysis Profile 11/15/2018 [facility] Urine Color Yellow [address] [place] [address] [phone] Urine Appearance Cloudy Urine Specific [place] 1.018 Normal 1.010-1.030 Urine pH 7.0 Normal 5-9 Urine Urobilinogen Negative Negative Urine Ketones Negative Negative Urine Protein 1+(30 mg/dL) Abnormal Negative Urine Leukocytes 2+ Abnormal Negative Urine Blood 1+ Abnormal Negative Urine Nitrite Negative Negative Urine Bilirubin Negative Negative Urine Glucose Negative Negative Urine White Blood Cell 3+(>20/hpf) Abnormal Absent Urine Red Blood Cell 3+(>10/hpf) Abnormal Absent Urine Bacteria Absent Absent Urine Culture And 11/15/2018 [facility] Urine Culture SEE RESULT [address] [place] [address] [phone] Comp Metabolic 11/15/2018 [facility] Sodium 133 mmol/L Low 135 -[address] [place] [address] [phone] Potassium 4.8 mmol/L Normal 3.5-5.0 Chloride 98 mmol/L Low 101-111 Co2 Carbon Dioxide 29 mmol/L Normal 22-32 Anion Gap 6 mmol/L Normal 2-11 Glucose 139 mg/dL High 70-100 Blood Urea Nitrogen 18 mg/dL Normal 6-24 Creatinine 0.74 mg/dL Normal 0.67-1.17 BUN/Creatinine Ratio 24.3 High 8-20 Calcium 9.9 mg/dL Normal 8.6-10.3 Total Protein 7.8 g/dL Normal 6.4-8.9 Albumin 4.4 g/dL Normal 3.2-5.2 Globulin 3.4 g/dL Normal 2-4 Albumin/Globulin Ratio 1.3 Normal 1-3 Total Bilirubin 0.40 mg/dL Normal 0.2-1.0 Alkaline Phosphatase 97 U/L Normal 34-104 Alt 24 U/L Normal 7-52 Ast 17 U/L Normal 13-39 Egfr Non- 109.8 >60 Egfr 132.9 >60 3 CBC Auto 11/15/2018 [facility] White Blood 7.1 10^3/uL Normal 3.5-10.[address] [place] [address] [phone] Red Blood Count 4.97 10^6/uL Normal 4.18-5.48 Hemoglobin 13.5 g/dL Low 14.0-18.0 Hematocrit 41 % Low 42-52 Mean Corpuscular Volume 82 fL Normal 80-94 Mean Corpuscular Hemoglobin 27 pg Normal 27-31 Mean Corpuscular HGB Conc 33 g/dL Normal 31-36 Red Cell Distribution Width 15 % Normal 10.5-15 Platelet Count 444 10^3/uL Normal 150-450 Mean Platelet Volume 6.4 fL Low 7.4-10.4 Abs Neutrophils 5.4 10^3/uL Normal 1.5-7.7 Abs Lymphocytes 1.2 10^3/uL Normal 1.0-4.8 Abs Monocytes 0.4 10^3/uL Normal 0-0.8 Abs Eosinophils 0.1 10^3/uL Normal 0-0.6 Abs Basophils 0.0 10^3/uL Normal 0-0.2 Abs Nucleated RBC 0.0 10^3/uL Granulocyte % 76.0 % Lymphocyte % 16.9 % Monocyte % 5.8 % Eosinophil % 0.7 % Basophil % 0.6 % Nucleated Red Blood Cells % 0.0 Laboratory test 11/15/2018 [facility] C Reactive 18.60 mg/L High <8.[address] [place] [address] [phone] Laboratory test 11/05/2018 [facility] C Reactive 45.19 mg/L High <8.[address] [place] [address] [phone] Laboratory test 10/25/2018 [facility] C Reactive 30.49 mg/L High <8.[address] [place] [address] [phone] 1 Because ethnic data is not always readily available, this report includes an eGFR for both -Americans and non- Americans. The National Kidney Disease Education Program (NKDEP) does not endorse the use of the MDRD equation for patients that are not between the ages of 18 and 70, are , have extremes of body size, muscle mass, or nutritional status, or are non- or non-. According to the National Kidney Foundation, irrespective of diagnosis, the stage of the disease is based on the level of kidney function: Stage Description GFR(mL/min/1.73 m(2)) 1 Kidney damage with normal or decreased GFR 90 2 Kidney damage with mild decrease in GFR 60-89 3 Moderate decrease in GFR 30-59 4 Severe decrease in GFR 15-29 5 Kidney failure <15 (or dialysis) 2 SEE RESULT BELOW Name: COLLIN GUZMAN : [address]: Bárbara Martinez Acct: [id number] Unit: [id number] AGE: 53 Location: [facility] Re11/15/18 SEX: M Status: REG REF SPEC: [id number] GALO: 11/15/18 [facility] DR: Bárbara Simental NP REQ: [id number] RECD: 11/15/189 STATUS: COMP _ [facility] ORDERED: Urine Culture COMMENTS: [id number] Urine Source: Random Procedure Result Reported Site Urine Culture Final 11/16/18- 1312 ML No Growth (<1,000 CFU/mL) * ML - Main Lab . END OF REPORT DEPARTMENT OF PATHOLOGY, [address] [place] [address] Junito Smith M.D. Director [facility] # [id number] 3 Because ethnic data is not always readily available, this report includes an eGFR for both -Americans and non- Americans. The National Kidney Disease Education Program (NKDEP) does not endorse the use of the MDRD equation for patients that are not between the ages of 18 and 70, are , have extremes of body size, muscle mass, or nutritional status, or are non- or non-. According to the National Kidney Foundation, irrespective of diagnosis, the stage of the disease is based on the level of kidney function: Stage Description GFR(mL/min/1.73 m(2)) 1 Kidney damage with normal or decreased GFR 90 2 Kidney damage with mild decrease in GFR 60-89 3 Moderate decrease in GFR 30-59 4 Severe decrease in GFR 15-29 5 Kidney failure <15 (or dialysis) Procedures Description No Information Available Medical Devices Description No Information Available Encounters Type Date Location Provider Dx Diagnosis Office Visit 01/17/2019 [facility] Raquel John M86.68 Other chronic 3:00p Infectious GERALD Simental osteomyelitis, Diseases other site Office Visit 12/10/2018 [facility] Raquel John M86.68 Other chronic 2:30p Infectious GERALD Simental osteomyelitis, Diseases other site L02.211 Cutaneous abscess of abdominal wall Office Visit 11/15/2018 [facility] Bárbara John L02.211 Cutaneous 9:00a For Infectious GERALD Simental abscess of Diseases abdominal wall R30.0 Dysuria M86.68 Other chronic osteomyelitis, other site Z79.2 penitentiary (current) use of antibiotics Office Visit 11/05/2018 3:00p 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 Bárbara John M86.68 Other chronic 8:00a For Yue Simental NP osteomyelitis, Diseases other site Z79.2 penitentiary (current) use of antibiotics Office Visit 09/04/2018 9:10a [facility] Raquel Napier L02.211 Cutaneous Infectious Mandeep Aviles abscess of Diseases abdominal wall Z79.2 penitentiary (current) use of antibiotics M86.68 Other chronic osteomyelitis, other site Assessments Date Code Description Provider 02/27/2019 M86.68 Other chronic osteomyelitis, other Bárbara Simental NP site 02/27/2019 L02.211 Cutaneous abscess of abdominal wall Bárbara Simental NP 02/27/2019 R30.0 Dysuria Bárbara Simental NP 02/27/2019 Z79.2 penitentiary (current) use of Bárbara Simental NP antibiotics 01/17/2019 M86.68 Other chronic osteomyelitis, other Bárbara Simental NP site 12/10/2018 M86.68 Other chronic osteomyelitis, other Bárbara Simental NP site 12/10/2018 L02.211 Cutaneous abscess of abdominal wall Bárbara Simental NP 11/15/2018 L02.211 Cutaneous abscess of abdominal wall Bárbara Simental, UI PROGRAMMER 11/15/2018 R30.0 Dysuria Bárbaralázaro Simental, UI PROGRAMMER 11/15/2018 M86.68 Other chronic osteomyelitis, other Bárbaralázaro Simental, UI PROGRAMMER site 11/15/2018 Z79.2 penitentiary (current) use of Bárbara Simental, UI PROGRAMMER antibiotics 11/05/2018 R23.8 Other skin changes Bárbara Simental, UI PROGRAMMER 11/05/2018 Z79.2 penitentiary (current) use of Bárbara Alvaro Simental, UI PROGRAMMER antibiotics 11/05/2018 M86.651 Other chronic osteomyelitis, right Bárbara Simental, UI PROGRAMMER thigh 10/26/2018 M86.68 Other chronic osteomyelitis, other Bárbara Simental, UI PROGRAMMER site 10/26/2018 Z79.2 penitentiary (current) use of Bárbara Simental, GERALD antibiotics 09/04/2018 L02.211 Cutaneous abscess of abdominal wall Chava Aviles M.D. 09/04/2018 Z79.2 penitentiary (current) use of Chava Aviles M.D. antibiotics 09/04/2018 M86.68 Other chronic osteomyelitis, other Chava Aviles M.D. site Plan of Treatment Future Appointment(s):03/14/2019 8:30 am - Bárbara Simental NP at [facility] For Infectious Tijmhxod03/15/2019 8:30 am - Chava Aviles M.D. at [facility] For Infectious Tglcdgpr79/21/2019 - Bárbara Simenatl, NPM86.68 Other chronic osteomyelitis, other siteNew Xrays:US Soft Tissue Extremity RT, Ordered: 02/27/19Unlisted Ultrasound Procedure, Ordered: L02.211 Cutaneous abscess of abdominal wallFollow up:2 igvcnB30.0 UggogetH59.2 penitentiary (current) use of antibiotics Functional Status Description No Information Available Mental Status Description No Information Available Referrals Description No Information Available
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
[2019-03-26] MEDS ORDERED: Piperacillin/Tazobac ADVAN(*) 3.375 GM in NS 0.9% 100 ML* 100 ML IVPB ONE (11:16)
[2019-03-26] MEDS ORDERED: NS 0.9% 1000 ML** 1,000 ML IV.FLUID IV ONE (11:16)
[2019-03-26] MEDS ORDERED: Ketorolac INJ* 15 MG/ML 1 ML VIAL IV ONE (11:16)
[2019-03-26 11:53] LABS: ABS Basophils 0.1 10^3/ul (0-0.2); ABS Lymphocytes 1.3 10^3/ul (1.0-4.8); ABS Monocytes 0.5 10^3/ul (0-0.8); ABS Neutrophils 7.6 10^3/ul (1.5-7.7); Eosinophil % 0.3 %; Hematocrit 40 % (42-52); Hemoglobin 13.5 g/dL (14.0-18.0); Mean Corpuscular HGB Conc 33 g/dL (31-36); Mean Corpuscular Hemoglobin 27 pg (27-31); Mean Corpuscular Volume 80 fL (80-94); Mean Platelet Volume 6.6 fL (7.4-10.4); Nucleated Red Blood Cells % 0.1; Platelet Count 396 10^3/uL (150-450); Red Blood Count 5.05 10^6 /uL (4.18-5.48); Red Cell Distribution Width 15 % (10-15); White Blood Count 9.6 10^3/uL (3.5-10.8)
[2019-03-26 12:00] LABS: Activated Partial Thrombo Time 34.2 seconds (26.0-38.0); INR 0.98 (0.82-1.09)
[2019-03-26 12:17] LABS: Albumin 4.3 g/dL (3.2-5.2); Albumin/Globulin Ratio 1.2 (1-3); BUN/Creatinine Ratio 23.6 (8-20); C Reactive Protein 29.43 mg/L (<8.01); Calcium 9.8 mg/dL (8.6-10.3); EGFR African American 137.1 (>60); EGFR Non-African American 113.3 (>60); Globulin 3.6 g/dL (2-4); Total Bilirubin 0.5 mg/dL (0.2-1.0); Total Protein 7.9 g/dL (6.4-8.9)
[2019-03-26 12:18] LABS: Troponin I 0.01 ng/mL (<0.04)
[2019-03-26] MEDS ORDERED: Iohexol 300* (CONTRAST) 10 ML SDV IV ONE (12:30)
[2019-03-26 13:53] LABS: Erythrocyte Sed Rate 48 mm/Hr (0-19)
[2019-03-26 15:17] LABS: Urine Appearance Cloudy; Urine Bacteria Absent (Absent); Urine Bilirubin Negative (Negative); Urine Blood 1+ (Negative); Urine Color Yellow; Urine Glucose Negative (Negative); Urine Ketones Negative (Negative); Urine Nitrite Negative (Negative); Urine Protein Negative (Negative); Urine Red Blood Cell 3+(>10/hpf) (Absent); Urine Specific Gravity > 1.060 (1.010-1.030); Urine Urobilinogen Negative (Negative); Urine White Blood Cell 3+(>20/hpf) (Absent)
[2019-03-26] MEDS ORDERED: amLODIPine TAB* 5 MG PO ONE (15:31)
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
[2019-03-26 16:54] VITALS: BP 168/98
== END 2019-03-26 16:53 | disposition home or self-care (01) ==
LOC: ED 09:35
DX: M25.151 Fistula, right hip (principal); M86.60 Other chronic osteomyelitis, unspecified site; I10 Essential (primary) hypertension; Z96.641 Presence of right artificial hip joint; Z79.899 Other long term (current) drug therapy; Z88.1 Allergy status to other antibiotic agents; Z88.5 Allergy status to narcotic agent
CPT/HCPCS: 36415; 74177; 80053; 81003; 81015; 82550; 83605; 84484; 85025; 85610; 85652; 85730; 86140; 87040; 87086; 93005; 96361; 96365; 96366; 96375; 99283; A9270-GY; J1885; J2543; Q9967

== ENCOUNTER 2020-08-26 09:36 | Inpatient (IN) ==
[2020-08-26] MEDS ORDERED: Ondansetron ODT 4 mg TAB 4 MG TAB PO PRN (11:45)
[2020-08-26] MEDS ORDERED: Magnesium Hydroxide LIQ 30 ML UDC PO PRN (11:45)
[2020-08-26] MEDS ORDERED: Morphine 2 MG/ML SYRINGE IV PRN (11:45)
[2020-08-26] MEDS ORDERED: Ondansetron 4 mg VIAL 2 MG/ML 2 ml VIAL IV PRN (11:45)
[2020-08-26] MEDS ORDERED: Lactulose 30 ml UDC PO PRN (11:45)
[2020-08-26] MEDS ORDERED: diPHENhydraMINE 25 mg TAB PO PRN (11:45)
[2020-08-26] MEDS ORDERED: diPHENhydraMINE IV 50 MG/ML 1 ml VIAL (BENADRYL) IV PRN (11:45)
[2020-08-26 11:53] LABS: ABS Basophils 0.1 10^3/ul (0-0.2); ABS Lymphocytes 1.4 10^3/ul (1.0-4.8); ABS Monocytes 0.6 10^3/ul (0-0.8); ABS Neutrophils 6.9 10^3/ul (1.5-7.7); Eosinophil % 0.3 %; Hematocrit 46 % (42-52); Hemoglobin 15.5 g/dL (14.0-18.0); Lymphocyte % 15.6 %; Mean Corpuscular HGB Conc 34 g/dL (31-36); Mean Corpuscular Hemoglobin 29 pg (27-31); Mean Corpuscular Volume 87 fL (80-94); Platelet Count 416 10^3/uL (150-450); Red Cell Distribution Width 14 % (10-15)
[2020-08-26 12:08] LABS: Albumin 4.9 g/dL (3.2-5.2); Albumin/Globulin Ratio 1.3 (1-3); BUN/Creatinine Ratio 16.7 (8-20); EGFR Non-African American 94.2 (>60); Globulin 3.8 g/dL (2-4); Total Bilirubin 0.8 mg/dL (0.2-1.0); Total Protein 8.7 g/dL (6.4-8.9)
[2020-08-26 12:27] LABS: Potassium 4.3 mmol/L (3.5-5.0)
[2020-08-26 12:33] LABS: Activated Partial Thrombo Time 33.9 seconds (26.0-38.0); INR 1.07 (0.82-1.09)
[2020-08-26 12:48] LABS: C Reactive Protein 16.16 mg/L (<8.01)
[2020-08-26] MEDS ORDERED: Heparin 5000 UNITS/ML 1 mL VIAL SUBCUT ONE (14:00)
[2020-08-26 14:09] LABS: Erythrocyte Sed Rate 39 mm/Hr (0-19)
[2020-08-26] MEDS: Magnesium Hydroxide LIQ 30 ML UDC PO SCH (22:07)
[2020-08-27] MEDS ORDERED: Buffered Lidocaine 1% SYRIN 1 ml INTRADERM ONE (06:00)
[2020-08-27] MEDS ORDERED: Lactated Ringers 1000 ml BAG 1,000 ML IV SCH (06:00)
[2020-08-27 06:23] LABS: Activated Partial Thrombo Time 32.5 seconds (26.0-38.0)
[2020-08-27 06:32] LABS: BUN/Creatinine Ratio 26.4 (8-20); Calcium 9.3 mg/dL (8.6-10.3); EGFR African American 136.2 (>60); EGFR Non-African American 112.5 (>60); Potassium 4.1 mmol/L (3.5-5.0)
[2020-08-27] MEDS ORDERED: Influenza VAC *QUAD* 2020-21* 0.5 ML SYRINGE IM ONE (09:00)
[2020-08-27] MEDS: Magnesium Hydroxide LIQ 30 ML UDC PO SCH ×2 (09:06→22:50)
[2020-08-27] MEDS: Vitamin THERAPEUTIC TAB PO SCH (09:09)
[2020-08-27] MEDS ORDERED: Bacitracin INJECTION 50,000 UNITS ONE ×2 (17:41→18:12)
[2020-08-27] MEDS ORDERED: fentaNYL 100 mcg/2 ml 50 MCG/ML VIAL ONE ×3 (17:45→21:11)
[2020-08-27] MEDS ORDERED: Ondansetron 4 mg VIAL 2 MG/ML 2 ml VIAL ONE (17:45)
[2020-08-27] MEDS ORDERED: Midazolam 2 mg/2 ml VIAL 1 mg/ml 2 ml VIAL (2 mg) ONE ×2 (17:45→18:39)
[2020-08-27] MEDS ORDERED: Dexamethasone IV 4 MG/ML VIAL 1 ml VIAL ONE (17:45)
[2020-08-27] MEDS ORDERED: Glycopyrrolate IV 0.2 MG/ML 1 ML VIAL ONE (17:45)
[2020-08-27] MEDS ORDERED: Propofol 10 MG/ML 20 ML BTL ONE ×2 (17:45→18:40)
[2020-08-27] MEDS ORDERED: Lidocaine 2% PF 5 ML VIAL ONE (17:49)
[2020-08-27] MEDS ORDERED: ceFAZolin 2 GM PREMIX 2 GM/50 ML BAG ONE (18:04)
[2020-08-27] MEDS ORDERED: Metoprolol Tartrate 5 mg VIAL 5 ml VIAL (1 mg/ml) ONE (19:54)
[2020-08-27] MEDS ORDERED: Naloxone 0.4 mg VIAL 0.4 mg/ml 1 ml VIAL IV PRN (20:52)
[2020-08-27] MEDS ORDERED: diPHENhydraMINE IV 50 MG/ML 1 ml VIAL (BENADRYL) IV PRN (20:52)
[2020-08-27] MEDS: fentaNYL 100 mcg/2 ml 50 MCG/ML VIAL IV PRN ×3 (21:13→21:28)
[2020-08-27] MEDS ORDERED: NS 0.9% 1000 ml BAG 1,000 ML IV SCH (22:15)
[2020-08-28] MEDS ORDERED: Zosyn per Pharmacy NOTE FOLLOW UP PRN (01:36)
[2020-08-28] MEDS ORDERED: ZOSYN 3.375 GM x ONE DOSE over 30 miuntes IV (02:00)
[2020-08-28 05:32] LABS: ABS Lymphocytes 0.7 10^3/ul (1.0-4.8); ABS Monocytes 0.3 10^3/ul (0-0.8); ABS Neutrophils 6.9 10^3/ul (1.5-7.7); Hematocrit 38 % (42-52); Hemoglobin 12.5 g/dL (14.0-18.0); Lymphocyte % 9.3 %; Mean Corpuscular HGB Conc 33 g/dL (31-36); Mean Corpuscular Hemoglobin 29 pg (27-31); Mean Corpuscular Volume 88 fL (80-94); Mean Platelet Volume 6.9 fL (7.4-10.4); Platelet Count 337 10^3/uL (150-450); Red Blood Count 4.32 10^6 /uL (4.18-5.48); Red Cell Distribution Width 14 % (10-15)
[2020-08-28] MEDS: ZOSYN 3.375 GM Q8H per EXTENDED INFUSION IV SCH ×2 (05:42→14:24)
[2020-08-28 05:49] LABS: BUN/Creatinine Ratio 25.6 (8-20); Calcium 8.5 mg/dL (8.6-10.3); EGFR African American 117.2 (>60); EGFR Non-African American 96.8 (>60); Potassium 4.5 mmol/L (3.5-5.0)
[2020-08-28] MEDS: Vitamin THERAPEUTIC TAB PO SCH (08:09)
[2020-08-28] MEDS: Magnesium Hydroxide LIQ 30 ML UDC PO SCH (08:12)
[2020-08-28] MEDS ORDERED: Influenza VAC *QUAD* 2020-21* 0.5 ML SYRINGE IM ONE (09:00)
[2020-08-28] MEDS ORDERED: Morphine ER 15 mg TAB ** extended release PO SCH (13:00)
[2020-08-28 19:58] VITALS: BP 135/71
== END 2020-08-28 20:30 | disposition left against medical advice (07) | DRG 349 ==
LOC: ED 09:36 → SSU 11:45
PROVIDERS: ADMIT Orthopaedic Surgery Adult Reconstructive Orthopaedic Surgery; ATTEND Orthopaedic Surgery Adult Reconstructive Orthopaedic Surgery